=== PATIENT | male | born 1940 | race Caucasian/White ===

== ENCOUNTER → 2017-11-14 11:39 | Outpatient (CLI) | payer MEDICARE, OTHER, SELFPAY ==
[2017-11-14 12:43] LABS: Anion Gap 5 (5-15); BUN 24 mg/dL (7-18); BUN/Creat Ratio 21.4 RATIO (10-20); Calcium,Total 8.9 mg/dL (8.5-10.1); Chloride 103 mmol/L (98-107); Creatinine, Serum 1.12 mg/dL (0.70-1.30); EST Glomerular Filtration Rate 67 mL/min (>60); Est Glom Filt Rate - Afr Amer 81 mL/min (>60); Glucose 114 mg/dL (74-106); Potassium 3.9 mmol/L (3.5-5.1); Sodium Level 141 mmol/L (136-145)
== END ==
PROVIDERS: Family Provider Family Medicine; PCP Family Medicine; Visit Provider Urology
DX: N20.0 Calculus of kidney (principal)
CPT/HCPCS: 36415; 80048

== ENCOUNTER → 2018-03-01 09:31 | Outpatient (CLI) | payer MEDICARE, OTHER, SELFPAY ==
[2018-03-01 10:28] LABS: AST(SGOT) 27 U/L (15-37); Alanine Aminotransfer ALT/SGPT 32 U/L (16-61); Albumin, Serum 3.8 g/dL (3.2-5.0); Alkaline Phosphatase 69 U/L (45-117); Bilirubin, Direct 0.26 mg/dL (0.00-0.30); Cholesterol 154 mg/dL (200); Globulin 3.4 g/dL (2.2-4.2); High Density Lipoprotein 56 mg/dL; Protein, Total 7.2 g/dL (6.4-8.2); Triglycerides 196 mg/dL; Very Low Density Lipoprotein 39 mg/dL (5-40)
== END ==
PROVIDERS: Family Provider Family Medicine; PCP Family Medicine; Visit Provider Internal Medicine Cardiovascular Disease
DX: E78.5 Hyperlipidemia, unspecified (principal)
CPT/HCPCS: 36415; 80061; 80076

== ENCOUNTER → 2018-04-13 07:47 | Outpatient (CLI) | payer MEDICARE, OTHER, SELFPAY | PROVIDERS: Family Provider Family Medicine; PCP Family Medicine; Visit Provider Ophthalmology | DX: G45.3 Amaurosis fugax (principal) | CPT/HCPCS: 93880 ==

== ENCOUNTER 2018-04-20 19:38 | Observation (INO) | payer MEDICARE, OTHER, SELFPAY ==
[2018-04-20] VITALS (9 sets, daily range): BP systolic 157–199; BP diastolic 80–101; PULSE 52–59; RESP 13–27; TEMP 36.5; O2SAT 96–98; BMI 30.1
--- NOTE | 2018-04-20 20:31 | EKG12_ITS ---
Test Reason : DIZZINESS Blood Pressure : / mmHG Vent. Rate : 052 BPM Atrial Rate : 052 BPM P-R Int : 234 ms QRS Dur : 112 ms QT Int : 458 ms P-R-T Axes : 025 022 088 degrees QTc Int : 425 ms Sinus bradycardia with 1st degree A-V block Incomplete right bundle branch block Nonspecific ST and T wave abnormality Abnormal ECG Confirmed by CLEVELAND DANG, THOMAS ([id number]), makeup editor RENATA REBOLLEDO ([id number] on 04/23/2018 3:23:16 PM Referred By: MARSHALL Confirmed By:THOMAS GUTHRIE MD
--- NOTE | 2018-04-20 20:31 | CT_ITS ---
STUDY: CT BRAIN WITHOUT CONTRAST REASON FOR EXAM: Male, 77 years old. Dizziness, CVA. RADIATION DOSAGE (If Supplied By Facility): CTDIvol = ( 44.99 ) mGy, DLP = ( 779.24 ) mGycm TECHNIQUE: Transaxial CT imaging of the brain was performed without administration of intravenous contrast material. Individualized dose optimization techniques were used for this CT. COMPARISON: None. FINDINGS: Normal soft tissue structures. Normal calvarium. There is mild cerebral atrophy with widening of the extra-axial spaces and ventricular dilatation. There are areas of decreased attenuation within the white matter tracts of the supratentorial brain, consistent with microvascular disease changes. Normal basal ganglia and thalami. Normal brainstem. Normal cerebellum. There is no intracranial hemorrhage. There are no findings of an acute ischemic infarction. There is a chronic left temporoparietal infarct, MCA distribution. Normal visualized paranasal sinuses. CT/Brain/Head without Contrast IMPRESSION: 1. No acute process. 2. Chronic left MCA infarct. 3. Mild involutional changes. Electronically Signed: Melody Burroughs MD at 21:52 EDT Tel , Service support ,
--- NOTE | 2018-04-20 20:33 | ED.VISSUMM ---
- ER Visit Summary Date of Service: 04/20/18 Chief Complaint: Vertigo History of Present Illness: The patient is a 77 M presenting with sudden onset of vertigo. Symptoms started at 6:45 PM. He states he was walking and began to have a spinning sensation. He had unsteady gait and was falling into the wall. These symptoms lasted 15-20 minutes. He is now feeling improved. He has a history of previous stroke. He is on Plavix. Physical Examination: Vitals are stable. Patient is afebrile. Alert no acute distress. HEENT exam is unremarkable. Neck is supple. Lungs are clear and equal bilaterally. Heart is regular rate and rhythm. Abdomen is soft nontender nondistended. Extremities are unremarkable. Skin is warm and dry. No focal neurologic deficit. NIH 1 mild expressive aphasia Remainder of exam is unremarkable. Emergency Department Course and Treatment: Stroke team was not activated due to NIH less than 4. CBC, chemistries unremarkable other than potassium 3.3, glucose 118, BUN 25. INR is 1.0. Troponin is less than 0.015. EKG is sinus rate of 52. Chest x-ray shows no acute process. CT head shows chronic left MCA infarct, no acute process. Will discuss with the hospitalist for observation. Disposition: Observation Impression: Vertigo, TIA This note was generated with CallmyName dictation software. It may contain incorrect words, spelling, and punctuation that were not noted in review of the chart prior to signing ED Disposition - Plan for ED Patient: Chief Complaint: Dizziness Referrals: Ric Ramirez MD [Primary Care Provider] -
--- NOTE | 2018-04-20 20:43 | RAD_ITS ---
STUDY: X-RAY CHEST REASON FOR EXAM: Male, 77 years old. Dizziness. TECHNIQUE: Portable chest. COMPARISON: None. FINDINGS: Sternotomy wires and surgical clips are compatible with prior CABG. The lungs are clear and expanded. There is no demonstrated pleural abnormality. There is mild cardiac enlargement. Normal mediastinum and montse. Normal visualized pulmonary arteries. Normal visualized aortic arch and descending thoracic aorta. Normal visualized thoracic spine. Normal visualized ribs, clavicles, and shoulders. There is no demonstrated abnormality of the visualized soft tissue structures of the upper abdomen. RAD/Chest 1 View IMPRESSION: No acute process. Electronically Signed: Melody Burroughs MD at 21:18 EDT Tel , Service support ,
[2018-04-20 21:12] LABS: Absolute Lymphocyte Count 1.25 X10^3/ul (0.83-4.51); Absolute Neutrophil Count 4.5 X10^3/uL (2.0-7.7); Basophil# 0.01 X10^3/uL; Basophil% 0.1 % (0-1); Eosinophil# 0.11 X10^3/uL; Eosinophils% 1.6 % (0-5); Hematocrit 40.2 % (40-54); Hemoglobin 13.5 g/dl (13.0-16.5); Lymphocyte # 1.25 X10^3/ul (4.0); Lymphocyte % 18.5 % (19-41); Mean Corp Hgb Conc 33.6 g/gl (32-36); Mean Corpuscular Hgb 30.1 pg (27.0-32.0); Mean Corpuscular Volume 89.5 fL (80-94); Monocyte# 0.84 X10^3/uL; Monocyte% 12.4 % (0-10); Neutrophil # 4.54 X10^3/uL (2.7-7.7); Neutrophil % 67.3 % (47-70); POSITIVE COUNT NO; POSITIVE DIFFERENTIAL NO; POSITIVE MORPHOLOGY NO; Platelet Count 173 K/mm3 (150-450); RBC Distribution Width CV 13.5 % (11.6-14.6); RBC Distribution Width SD 43.9 fl (35.1-43.9); Red Blood Count 4.49 M/mm3 (4.6-6.2); White Blood Count 6.8 K/mm3 (4.4-11.0)
[2018-04-20 21:17] LABS: Partial Thromboplast Time 27.6 Seconds (24.1-36.2); Prothrombin Time (Protime)PT. 13.5 SECONDS (11.7-14.9)
[2018-04-20 21:33] LABS: Anion Gap 7 (5-15); BUN 25 mg/dL (7-18); BUN/Creat Ratio 20.7 RATIO (10-20); Calcium,Total 9.1 mg/dL (8.5-10.1); Chloride 103 mmol/L (98-107); Creatinine, Serum 1.21 mg/dL (0.70-1.30); EST Glomerular Filtration Rate 61 mL/min (>60); Est Glom Filt Rate - Afr Amer 74 mL/min (>60); Estimated Creatinine Clearance 51.11 ml/min; Glucose 118 mg/dL (74-106); Potassium 3.3 mmol/L (3.5-5.1); Sodium Level 140 mmol/L (136-145)
--- NOTE | 2018-04-20 22:05 | PCM.HP.STD ---
Problem List (1) Stroke-like symptoms Status: Acute (2) H/O coronary artery bypass surgery Status: Chronic Comment: CABG saphenous vein graft to Diag 1, saphenous vein graft to left CFX, free ABEL to PDA, GUERRERO graft to LAD 1995. 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 (3) HLD (hyperlipidemia) Status: Chronic Qualifiers: Hyperlipidemia type: pure hypercholesterolemia Qualified Code(s): E78.00 - Pure hypercholesterolemia, unspecified; E78.00 - Pure hypercholesterolemia, unspecified; E78.00 - Pure hypercholesterolemia, unspecified; E78.0 - Pure hypercholesterolemia (4) HTN (hypertension) Status: Chronic Qualifiers: Hypertension type: essential hypertension Qualified Code(s): I10 - Essential (primary) hypertension; I10 - Essential (primary) hypertension; I10 - Essential (primary) hypertension History of Present Illness Date of Admission: 04/20/18 Chief Complaint: Wobbly on feet x 15-20 minutes The patient is a 77 year old M with a 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 This lasted for about 15-20 minutes. It is okay on the day of admission. His reported that the patient's speech deficits as mentioned above been no change. Probable CVA Head CT did not show any acute changes Patient is on aspirin 324 mg every 3 days. Patient reports that his cardiology wanted patient aspirin to be taken as stated. Aspirin continued with next dose within 24 hours of admission. Home Plavix continued High intensity statin continued MRI/MRA of brain and neck ordered. A1c ordered; returned unremarkable. Lipids unremarkable with LDL of 62. Permissive hypertension in first 24 hours. Labetalol 10 mg every 10 minutes as needed for systolic blood pressure more than 220 or diastolic blood pressure more than 120. Neurology consult. BPH Finasteride continued History of CAD with CABG Aspirin, Plavix and Lipitor continued DVT prophylaxis Subcutaneous heparin. Please verify rest of home medication when visits patient. 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 Nocturia (Chronic) R35.1 HLD (hyperlipidemia) (Chronic) E78.5 HTN (hypertension) (Chronic) I10 Allergies No Known Allergies Allergy (Verified 04/20/18 19:42) Home Medications: Ambulatory Orders Medication Instructions Recorded Aspirin [Aspirin EC] 325 mg PO Q3D 05/19/17 nitroglycerin 0.4 mg sublingual 0.4 mg SUBLINGUAL Q5-15M PRN 08/15/17 tablet amlodipine 5 mg tablet 5 mg PO DAILY #90 tab 04/03/18 atorvastatin 80 mg tablet 80 mg PO QHS #90 tab 04/03/18 clopidogrel 75 mg tablet 75 mg PO DAILY #90 tab 04/03/18 dutasteride 0.5 mg capsule 0.5 mg PO DAILY 04/03/18 hydrochlorothiazide 25 mg tablet 25 mg PO DAILY #90 tab 04/03/18 lisinopril 40 mg tablet 40 mg PO DAILY #90 tab 04/03/18 metoprolol tartrate 25 mg tablet 25 mg PO BID #180 tab 04/03/18 Surgical History: Surgical History (Last Reviewed 04/21/18 @ 07:13 by Heath Frias MD) H/O coronary artery bypass surgery (Chronic) Z95.1 CABG saphenous vein graft to Diag 1, saphenous vein graft to left CFX, free ABEL to PDA, GUERRERO graft to LAD 1995. 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 Surgical History: coronary bypass surgery, herniorrhaphy Lives: Spouse/ Significant Other Smoking Status: Never smoker Alcohol: None Review of Systems Constitutional: Denies: Chills, Fever, Weight Change HEENT: Denies: Head Aches, Sinus Congestion, Sinus Drainage Cardiovascular: Denies: Chest Pain, Palpitations Respiratory: Denies: Cough, Shortness of breath at rest, Sputum production Gastrointestinal: Denies: Abdominal Pain, Nausea, Vomiting Genitourinary: Denies: Dysuria Musculoskeletal: Denies: Joint Pain, Joint Tenderness Skin: Denies: Rash, Wounds Neurological: Reports: Balance problems, Slurred speech - Chronic and unchange per patient's . Psychiatric: Denies: Anxiety, Depression, Homicidal Ideations, Suicidal Ideations Hematologic/ Lymphatic: Denies: Easy Bruising, Easy Bleeding VTE Information - Inpt Only VTE Present on Admission: No VTE Mechan Device Prophylaxis: None VTE Pharm Prophylaxis ordered?: Yes Patient Problems: Active and Suspected Problems (Last Reviewed 04/21/18 @ 02:57 by Heath Frias MD) Stroke-like symptoms (Acute) - Physical Exam General: Alert, Oriented x3, Cooperative HEENT: Atraumatic, PERRLA, EOMI, Normocephalic Neck: Supple, No JVD, Negative Carotid Bruits Lungs: Clear to auscultation Cardiovascular: Regular rate, No murmurs Abdomen: Bowel Sounds Present, Soft, Non Tender Extremities: No edema, Capillary Refill Less than 3 Seconds Skin: No rashes, No breakdown Musculoskeletal: No Tenderness to Palpation of Joints or Extremities Neurological: Motor Exam 5/5 strength throughout, - - Receptive and expressive aphasia. Psych/Mental Status: Normal Affect Vital Signs Temp Pulse Resp BP Pulse Ox 97.7 F L 57 L 14 164/80 H 98 04/20/18 19:40 04/20/18 21:30 04/20/18 21:30 04/20/18 21:30 04/20/18 21:34 Oxygen Delivery Method Room Air Weight: 95.254 kg Body Mass Index (BMI) 30.1 Laboratory Tests Past 24 Hrs 04/20/18 04/20/18 04/20/18 20:50 20:50 20:50 WBC 6.8 RBC 4.49 L Hgb 13.5 Hct 40.2 MCV 89.5 MCH 30.1 MCHC 33.6 RDW 13.5 RDW Differential 43.9 Plt Count 173 MPV 10.0 Immature Gran % (Auto) 0.100 Neut % (Auto) 67.3 Lymph % (Auto) 18.5 L Cochran % (Auto) 12.4 H Eos % (Auto) 1.6 Baso % (Auto) 0.1 Absolute Neuts (auto) 4.5 Absolute Lymphs (auto) 1.25 Total Counted Not Reportable PT 13.5 INR 1.0 APTT 27.6 Sodium 140 Potassium 3.3 L Chloride 103 Carbon Dioxide 30.0 Anion Gap 7 BUN 25 H Creatinine 1.21 Estim Creat Clear Calc 51.11 Est GFR (MDRD) Af Amer 74 Est GFR (MDRD) Non-Af 61 BUN/Creatinine Ratio 20.7 H Glucose 118 H Calcium 9.1 Troponin I < 0.015 Assessment/Plan All Active Problems (Last Reviewed 04/21/18 @ 02:57 by Heath Frias MD) Stroke-like symptoms (Acute) The patient is a 77 year old M with a 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 Because of his previous symptoms of CVA his was concerned so patient was brought in for further evaluation. Probable CVA Head CT did not show any acute changes Patient is on aspirin 324 mg every 3 days. Patient reports that his cardiology wanted patient aspirin to be taken as stated. Aspirin continued with next dose within 24 hours of admission. Home Plavix continued High intensity statin continued MRI/MRA of brain and neck ordered. A1c ordered; returned unremarkable. Lipids unremarkable with LDL of 62. Permissive hypertension in first 24 hours. Labetalol 10 mg every 10 minutes as needed for systolic blood pressure more than 220 or diastolic blood pressure more than 120. PT, OT and ST to work with patient. Neurology consult. Hypertension Blood pressure not within goal at the time of admission High blood pressure management pain stroke protocol as above.. BPH Finasteride continued History of CAD with CABG Aspirin, Plavix and Lipitor continued DVT prophylaxis Subcutaneous heparin. Please verify rest of home medication when visit patient. Code Visit OBSV E&M: [id number] Initial observation care L3
[2018-04-21] VITALS (9 sets, daily range): BP systolic 137–187; BP diastolic 69–84; PULSE 56–79; RESP 15–17; TEMP 36.6–37.1; O2SAT 96–97; BMI 29.5
--- NOTE | 2018-04-21 00:17 | MRI_ITS ---
STUDY: MRI BRAIN WITHOUT CONTRAST REASON FOR EXAM: Male, 77 years old. Dizziness and gait abnormality. TECHNIQUE: Standardized multiplanar fat and water weighted pulse sequences were obtained. COMPARISON: 14 November 2011 FINDINGS: There is moderate cerebral atrophy with widening of the extra-axial spaces and ventricular dilatation. There are multiple white matter hyperintensities, distributed throughout the deep white matter tracts of the cerebral hemispheres, consistent with moderate chronic white matter ischemic changes. Left parietal temporal encephalomalacia from previous infarct is present with associated atrophic loss and expected dilatation of the right posterior ventricle. Normal T2* images of the brain without demonstrated susceptibility artifact. There is no demonstrated hemosiderin stain. Normal bilateral basal ganglia. Normal thalami. There is no extra-axial fluid accumulation. Normal flow voids within the major intracranial circulation suggesting patency by spin echo criteria. Normal sella turcica, pituitary gland, infundibular stalk, optic chiasm and hypothalamus. Normal tectal plate and pineal gland. Normal midbrain, audrey and medulla. Normal cerebellum. Normal basal cisterns. Normal bilateral temporal bones. Normal bilateral internal auditory canals. No demonstrated orbital abnormality, within the constraints of a routine brain study. Normal visualized paranasal sinuses. Normal calvarium and skull base. Normal visualized soft tissue structures. Normal visualized upper cervical spine. MRI/Brain without Contrast IMPRESSION: Senescent changes above with encephalomalacia the left posterior parietal temporal lobe from previous infarct with no evidence of acute intracranial bleed or ischemia. Electronically Signed: Rufino Benedict DO at 11:20 EDT , Service support ,
--- NOTE | 2018-04-21 00:17 | MRI_ITS ---
STUDY: MRA OF THE HEAD WITHOUT CONTRAST REASON FOR EXAM: Male, 77 years old. Dizziness and gait abnormality TECHNIQUE: 3-D [id number] (TOF) imaging was performed with MIPs. The study was performed unenhanced. COMPARISON: None. FINDINGS: Normal bilateral petrous carotid arteries. There is atherosclerotic narrowing greater than 50% within the right supraclinoid ICA as seen on axial series 2 image 72 through 84. Within the supraclinoid segment as seen on series 2 image 77 is likely an atherosclerotic outpouching with small irregular aneurysm not excluded. There is atheromatous plaque formation of the left cavernous carotid artery, with a mild stenosis (less than 50%). There is hypoplastic development of the right A1 segment of the anterior cerebral arteries with an atretic but intact artery. Normal left A1 segments of the anterior cerebral artery. Normal intact anterior communicating artery (ACOM). Normal bilateral A2 segments of the anterior cerebral arteries. There is irregularity of the right M1 and M2 branches with minimal luminal narrowing, suggesting atherosclerotic plaque formation, without an occlusion. There is irregularity of the left M1 and M2 branches with minimal luminal narrowing, suggesting atherosclerotic plaque formation, without an occlusion. Normal right posterior communicating artery (PCOM). Normal left posterior communicating artery (PCOM). There is absence of the right V4 segment. Right-sided There is a small atretic basilar artery, suggesting a basilar insufficiency. The visualized bilateral superior cerebellar (SCA) arteries are normal. Normal bilateral P1, P2 and visualized P3 segments of the posterior cerebral arteries. There is no demonstrated aneurysm of the [place] of [place]. There is no major vessel occlusion or hemodynamically significant stenosis. Within the left parietal occipital region is a region of encephalomalacia causing ex vacuo dilatation of the posterior lateral ventricle. MRI/MRA Head ONLY without Contrast IMPRESSION: 1. Diffuse areas of atherosclerotic change with greater than 50% stenosis within the right supraclinoid segment with irregularity and atherosclerotic changes. The distal M1 segment is patent on the right. Atherosclerotic contrast outpouching versus small supraclinoid medial aneurysm not excluded (series 2 image 77). 2. Absent right V4 segment with an atretic vertebral artery with distal right vertebral artery occlusion not excluded. 3. Encephalomalacia of the left posterior parietal parenchyma with associated ex vacuo dilatation of the posterior lateral right ventricle. Electronically Signed: Rufino Benedict DO at 10:44 EDT , Service support ,
--- NOTE | 2018-04-21 00:17 | MRI_ITS ---
STUDY: MRA NECK WITH AND WITHOUT CONTRAST REASON FOR EXAM: Male, 77 years old. Dizziness and gait abnormality. TECHNIQUE: 3-D [id number] (TOF) imaging was performed in an 1.5 T MRI scanner. 10 ml of Gadavist was administered for the contrast enhanced images. COMPARISON: None. FINDINGS: RIGHT CAROTID ARTERIES: Normal right common carotid artery (CCA). Normal right common carotid bulb. Normal origin of the right internal carotid (ICA) artery without a hemodynamically significant stenosis. Normal visualized cervical portion of the right internal carotid artery. Normal origin of the right external carotid artery (ECA). LEFT CAROTID ARTERIES: Normal left common carotid artery (CCA). Normal left common carotid bulb. Normal origin of the left internal carotid (ICA) artery without a hemodynamically significant stenosis. Normal visualized cervical portion of the left internal carotid artery. Normal origin of the left external carotid artery (ECA). VERTEBRAL ARTERIES: There is a diminutive 2 minimal flow related enhancement within the right vertebral artery. MRI/MRA Neck WITH and W/O Contrast IMPRESSION: Diminutive and minimal flow related enhancement in the right vertebral artery consistent with high-grade stenosis versus occlusion with normal appearance of the left vertebral artery. Otherwise no evidence of significant stenosis or aneurysm. Electronically Signed: Rufino Benedict DO at 11:52 EDT , Service support ,
[2018-04-21 00:45] LABS: Hemoglobin A1c 5.5 % (4.2-6.3)
[2018-04-21 06:44] LABS: International Normalized Ratio 1.1; Prothrombin Time (Protime)PT. 13.8 SECONDS (11.7-14.9)
[2018-04-21 06:59] LABS: Anion Gap 9 (5-15); BUN 22 mg/dL (7-18); BUN/Creat Ratio 21.4 RATIO (10-20); Calcium,Total 8.7 mg/dL (8.5-10.1); Chloride 104 mmol/L (98-107); Cholesterol 145 mg/dL (200); Creatinine, Serum 1.03 mg/dL (0.70-1.30); EST Glomerular Filtration Rate 74 mL/min (>60); Est Glom Filt Rate - Afr Amer 89 mL/min (>60); Estimated Creatinine Clearance 60.05 ml/min; Glucose 85 mg/dL (74-106); High Density Lipoprotein 45 mg/dL; Potassium 3.6 mmol/L (3.5-5.1); Sodium Level 143 mmol/L (136-145); Triglycerides 188 mg/dL; Very Low Density Lipoprotein 38 mg/dL (5-40)
--- NOTE | 2018-04-21 07:43 | ECHOD_ITS ---
Reason For Study: Arrhythmia Procedure This was a 2D Doppler, Color Flow transthoracic echocardiogram. Exam performed in department. Left Ventricle Normal LV size. Mild concentric left ventricular hypertrophy. Left ventricular systolic function is normal. The estimated ejection fraction is 60 %. No regional wall motion abnormalities noted. Right Ventricle Normal RV size. Normal systolic function. Atria Normal left atrium. Normal right atrium. Mitral Valve Normal mitral valve. Tricuspid Valve Normal tricuspid valve. Mild tricuspid valve insufficiency. Pulmonary artery systolic pressure is 29 mmHg. Aortic Valve Normal aortic valve. Pulmonic Valve Normal pulmonic valve. Great Vessels Normal aortic root. The pulmonary artery is normal size. Normal inferior vena cava. Pericardium/Pleural No pericardial effusion. Medication Negative bubble study on previous echo. MMode/2D Measurements & Calculations LVIDd: 4.4 cm IVSd: 1.2 cm Ao root diam: 3.8 cm LVIDs: 2.9 cm LVPWd: 1.2 cm LA dimension: 3.8 cm RVDd: 3.9 cm FS: 35.1 % LAV(MOD-bp): 59.4 ml LAV(MOD-bp) Indexed: 28.2 ml/m2 LA A4 area: 18.7 cm2 RA A4 area: 17.5 cm2 LAV(MOD-sp2): 71.1 ml LAV(MOD-sp4): 50.3 ml Doppler Measurements & Calculations MV E max grover: 51.2 cm/sec Lat Peak E' Grover: 8.3 cm/sec Med Peak E' Grover: 4.6 cm/sec MV A max grover: 56.0 cm/sec E/E' lat: 6.2 E/E' med: 11.1 MV E/A: 0.91 Ao V2 max: 131.2 cm/sec LV V1 max: 112.9 cm/sec PA V2 max: 124.1 cm/sec Ao max P.9 mmHg LV V1 max P.1 mmHg TR max grover: 249.1 cm/sec TR max P.8 mmHg Interpretation Summary Normal LV size. Mild concentric left ventricular hypertrophy. Left ventricular systolic function is normal. The estimated ejection fraction is 60 %. Structurally normal valves. Compared to prior study, there is no significant change. Ordering Physician: Nano Aquino Referring Physician: Ric Ramirez Performed By: Sharmila Levi RDCS
--- NOTE | 2018-04-21 07:44 | PCM.PN.HOSP ---
Patient Problems: Active and Suspected Problems (Last Reviewed 04/21/18 @ 07:13 by Heath Frias MD) Stroke-like symptoms (Acute) Subjective: Patient with no acute events overnight per self and per nursing report. Patient has had resolution of gait debility and ataxia since presentation to the emergency room the day prior with no recurrent neurological symptoms. He did state that 2 weeks prior to current presentation he did have right eye vision transient blurring but this had also resolved quickly. Reviewed MRI results with patient including no evidence of acute MRI and reviewed chronic changes on MRA of head and neck with neurology recommendation for outpatient evaluation and agreed with transition to daily baby aspirin and continuation of Plavix, statin and blood pressure regimen. Patient denies fevers, chills, nausea, emesis, abdominal pain, chest pain or dyspnea. Objective: Physical Examination: General: awake, alert, oriented x 3 and cooperative, seated upright in the bedside chair in no apparent distress. Skin: normal color, turgor, no icterus, cyanosis. HEENT: AT/NC, EOMI, PERRLA, MMM, chronic expressive and receptive aphasia. Lungs: CTA bilaterally, moderate effort, mild decrease BL bases, no rales, ronchi or wheezing. Heart: Regular rate and rhythm; no gallop, rub audible. Abdomen: soft, NTTP, ND, normal BS. Extremities: no cyanosis, clubbing, or edema. Neurological: patient awake, alert, oriented x 3; cognitive function intact; pupils equally reactive to light and accomodation; cranial nerves II-XII grossly normal, moving all 4 extremities, ongoing chronic expressive and receptive aphasia, unchanged, feels patient is a currently at baseline, strength intact, negative Babinski. Psychiatric: affect appears normal, no acute evidence of depressive or anxiety feelings. Vitals/I&O's: Vital Signs Temp Pulse Resp BP Pulse Ox 98.0 F 56 L 15 173/84 H 97 04/21/18 05:00 04/21/18 07:28 04/21/18 05:00 04/21/18 05:00 04/21/18 05:00 Oxygen Delivery Method Room Air Weight: 205 lb 11.06 oz Body Mass Index (BMI) 29.5 Intake and Output for Last 24 Hours 04/19/18 04/20/18 04/21/18 23:59 23:59 23:59 Intake Total 240 / 240 Balance 240 / 240 Laboratory Results 04/21/18 01:00: Troponin I < 0.015 04/21/18 06:10: PT 13.8, INR 1.1 04/21/18 06:10: Sodium 143, Potassium 3.6, Chloride 104, Carbon Dioxide 30.0, Anion Gap 9, BUN 22 H, Creatinine 1.03, Estim Creat Clear Calc 60.05, Est GFR (MDRD) Af Amer 89, Est GFR (MDRD) Non-Af 74, BUN/Creatinine Ratio 21.4 H, Glucose 85, Calcium 8.7, Triglycerides 188, Cholesterol 145, LDL Cholesterol 62, VLDL Cholesterol 38, HDL Cholesterol 45 Current Medications Aspirin (Ecotrin) 81 mg PO DAILY@0800 LARRY Atorvastatin Calcium (Lipitor) 80 mg PO QHS LARRY Clopidogrel Bisulfate (Plavix) 75 mg PO DAILY LARRY Finasteride (Proscar) 5 mg PO DAILY LARRY Heparin Sodium (Porcine) (Heparin Na) 5,000 unit SC Q12 LARRY Sodium Chloride () 250 mls @ 15 mls/hr IV .[id number] PRN PRN Reason: SALINE FLUSH Labetalol HCl (Trandate) 10 mg IV Q10M PRN PRN Reason: MAINTAIN SBP GOALS Stop: 04/22/18 00:18 Magnesium Hydroxide (Milk Of Magnesia) 30 ml PO DAILY PRN PRN Reason: Constipation Ondansetron HCl (Zofran) 4 mg IV Q8H PRN PRN PRN Reason: NAUSEA Sodium Chloride () 5 - 30 ml IV UD PRN PRN Reason: SALINE FLUSH Zolpidem Tartrate (Ambien (Generic)) 5 mg PO QHS PRN PRN PRN Reason: INSOMNIA Medical Necessity - Tobacco Use Smoking Status: Never smoker Assessment/Plan All Active Problems (Last Reviewed 04/21/18 @ 07:13 by Heath Frias MD) Stroke-like symptoms (Acute) The patient is a 77 y/o M w/ PMHx: CAD s/p CABG, HTN, HLD, BPH, 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 (1) Ataxic Gait concerning for TIA/CVA w/ Prior CVA history w/ chronic expressive and receptive aphasia: In the ED work-up included CBC remarkable, BMP w/ potassium 3.3, glucose 111 otherwise unremarkable, trop normal x 1, CT Head w/ no acute process, chronic left MCA infarct, mild involutional changes, CXR w/ acute process. Admitted to PCU, MRI Brain w/ senescent changes with encephalomalacia of the left posterior parietal temporal lobe from prior infarct with no evidence of acute infarct, MRA Head with diffuse areas of atherosclerotic change with greater than 50% stenosis within the right supraclinoid segment with irregularity and atherosclerotic changes, distal M1 segment patent on the right, atherosclerotic contrast outpouching versus small supraclinoid medial aneurysm unable to be excluded, absent right V4 segment with atretic vertebral artery with distal right vertebral artery occlusion unable to be excluded, encephalomalacia of the left posterior parietal parenchyma with associated ex vacuo dilatation of the posterior lateral RV, MRA Neck with diminutive flow related enhancement in the right vertebral artery consistent with high-grade stenosis versus occlusion with normal appearance of the left vertebral artery, ECHO with normal LV size, mild concentric LVH, normal LV systolic function, EF 60%, structurally normal-appearing bowels, PT/OT/Speech/Nutrition evaluation per protocol with home discharge recommendations. Neurology consulted for evaluation and recommended continuation of daily baby aspirin, Plavix, statin therapy as well as blood pressure regimen with planned follow-up outpatient within 3-4 weeks with no acute needs or interventions at this time. Given resolution of symptoms as noted above recommendations patient was maintained on HTN regimen to achieve goal, changed q3 day 325 mg ASA to daily 81 mg, continued on plavix, statin w/ AM FLP marked appearing. Maintain on fall precautions. TSH normal, magnesium normal. (2) Hyperglycemia, Mild: Admission glucose 118, HgbA1c 5.5%. (3) Hypokalemia: Admission K+ 3.3, supplementation given, repeat level w/ K 3.6. (4) Hypertension: Given resolution of symptoms, suspected TIA MRI of the brain with no acute stroke evident, started HTN regimen including Norvasc, hydrochlorothiazide, lisinopril, metoprolol with parameters, PRN labetalol. (5) Hyperlipidemia: Continue home statin regimen. AM FLP obtained as noted. (6) CAD: s/p CABG hx, maintain on asa transitioned to daily 81 mg, plavix, statin, BB. (7) BPH: Continue home dutasteride regimen. (8) DVT Prophylaxis: SCDs, lovenox.
--- NOTE | 2018-04-21 07:53 | PN_ITS ---
Patient Problems: Active and Suspected Problems (Last Reviewed 04/21/18 @ 07:13 by Heath Frias MD) Stroke-like symptoms (Acute) Subjective: Patient with no acute events overnight per self and per nursing report. Patient has had resolution of gait debility and ataxia since presentation to the emergency room the day prior with no recurrent neurological symptoms. He did state that 2 weeks prior to current presentation he did have right eye vision transient blurring but this had also resolved quickly. Reviewed MRI results with patient including no evidence of acute MRI and reviewed chronic changes on MRA of head and neck with neurology recommendation for outpatient evaluation and agreed with transition to daily baby aspirin and continuation of Plavix, statin and blood pressure regimen. Patient denies fevers, chills, nausea, emesis, abdominal pain, chest pain or dyspnea. Objective: Physical Examination: General: awake, alert, oriented x 3 and cooperative, seated upright in the bedside chair in no apparent distress. Skin: normal color, turgor, no icterus, cyanosis. HEENT: AT/NC, EOMI, PERRLA, MMM, chronic expressive and receptive aphasia. Lungs: CTA bilaterally, moderate effort, mild decrease BL bases, no rales, ronchi or wheezing. Heart: Regular rate and rhythm; no gallop, rub audible. Abdomen: soft, NTTP, ND, normal BS. Extremities: no cyanosis, clubbing, or edema. Neurological: patient awake, alert, oriented x 3; cognitive function intact; pupils equally reactive to light and accomodation; cranial nerves II-XII grossly normal, moving all 4 extremities, ongoing chronic expressive and receptive aphasia, unchanged, feels patient is a currently at baseline, strength intact, negative Babinski. Psychiatric: affect appears normal, no acute evidence of depressive or anxiety feelings. Vitals/I&O's: Vital Signs Temp Pulse Resp BP Pulse Ox 98.0 F 56 L 15 173/84 H 97 04/21/18 05:00 04/21/18 07:28 04/21/18 05:00 04/21/18 05:00 04/21/18 05:00 Oxygen Delivery Method Room Air Weight: 205 lb 11.06 oz Body Mass Index (BMI) 29.5 Intake and Output for Last 24 Hours 04/19/18 04/20/18 04/21/18 23:59 23:59 23:59 Intake Total 240 / 240 Balance 240 / 240 Laboratory Results 04/21/18 01:00: Troponin I < 0.015 04/21/18 06:10: PT 13.8, INR 1.1 04/21/18 06:10: Sodium 143, Potassium 3.6, Chloride 104, Carbon Dioxide 30.0, Anion Gap 9, BUN 22 H, Creatinine 1.03, Estim Creat Clear Calc 60.05, Est GFR ( MDRD) Af Amer 89, Est GFR (MDRD) Non-Af 74, BUN/Creatinine Ratio 21.4 H, Glucose 85, Calcium 8.7, Triglycerides 188, Cholesterol 145, LDL Cholesterol 62 , VLDL Cholesterol 38, HDL Cholesterol 45 Current Medications Aspirin (Ecotrin) 81 mg PO DAILY@0800 LARRY Atorvastatin Calcium (Lipitor) 80 mg PO QHS LARRY Clopidogrel Bisulfate (Plavix) 75 mg PO DAILY LARRY Finasteride (Proscar) 5 mg PO DAILY LARRY Heparin Sodium (Porcine) (Heparin Na) 5,000 unit SC Q12 LARRY Sodium Chloride () 250 mls @ 15 mls/hr IV .[id number] PRN PRN Reason: SALINE FLUSH Labetalol HCl (Trandate) 10 mg IV Q10M PRN PRN Reason: MAINTAIN SBP GOALS Stop: 04/22/18 00:18 Magnesium Hydroxide (Milk Of Magnesia) 30 ml PO DAILY PRN PRN Reason: Constipation Ondansetron HCl (Zofran) 4 mg IV Q8H PRN PRN PRN Reason: NAUSEA Sodium Chloride () 5 - 30 ml IV UD PRN PRN Reason: SALINE FLUSH Zolpidem Tartrate (Ambien (Generic)) 5 mg PO QHS PRN PRN PRN Reason: INSOMNIA Medical Necessity - Tobacco Use Smoking Status: Never smoker Assessment/Plan All Active Problems (Last Reviewed 04/21/18 @ 07:13 by Heath Frias MD) Stroke-like symptoms (Acute) The patient is a 77 y/o M w/ PMHx: CAD s/p CABG, HTN, HLD, BPH, 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 (1) Ataxic Gait concerning for TIA/CVA w/ Prior CVA history w/ chronic expressive and receptive aphasia: In the ED work-up included CBC remarkable, BMP w/ potassium 3.3, glucose 111 otherwise unremarkable, trop normal x 1, CT Head w/ no acute process, chronic left MCA infarct, mild involutional changes, CXR w/ acute process. Admitted to PCU, MRI Brain w/ senescent changes with encephalomalacia of the left posterior parietal temporal lobe from prior infarct with no evidence of acute infarct, MRA Head with diffuse areas of atherosclerotic change with greater than 50% stenosis within the right supraclinoid segment with irregularity and atherosclerotic changes, distal M1 segment patent on the right, atherosclerotic contrast outpouching versus small supraclinoid medial aneurysm unable to be excluded, absent right V4 segment with atretic vertebral artery with distal right vertebral artery occlusion unable to be excluded, encephalomalacia of the left posterior parietal parenchyma with associated ex vacuo dilatation of the posterior lateral RV, MRA Neck with diminutive flow related enhancement in the right vertebral artery consistent with high-grade stenosis versus occlusion with normal appearance of the left vertebral artery, ECHO with normal LV size, mild concentric LVH, normal LV systolic function, EF 60%, structurally normal-appearing bowels, PT/OT /Speech/Nutrition evaluation per protocol with home discharge recommendations. Neurology consulted for evaluation and recommended continuation of daily baby aspirin, Plavix, statin therapy as well as blood pressure regimen with planned follow-up outpatient within 3-4 weeks with no acute needs or interventions at this time. Given resolution of symptoms as noted above recommendations patient was maintained on HTN regimen to achieve goal, changed q3 day 325 mg ASA to daily 81 mg, continued on plavix, statin w/ AM FLP marked appearing. Maintain on fall precautions. TSH normal, magnesium normal. (2) Hyperglycemia, Mild: Admission glucose 118, HgbA1c 5.5%. (3) Hypokalemia: Admission K+ 3.3, supplementation given, repeat level w/ K 3.6. (4) Hypertension: Given resolution of symptoms, suspected TIA MRI of the brain with no acute stroke evident, started HTN regimen including Norvasc, hydrochlorothiazide, lisinopril, metoprolol with parameters, PRN labetalol. (5) Hyperlipidemia: Continue home statin regimen. AM FLP obtained as noted. (6) CAD: s/p CABG hx, maintain on asa transitioned to daily 81 mg, plavix, statin, BB. (7) BPH: Continue home dutasteride regimen. (8) DVT Prophylaxis: SCDs, lovenox.
[2018-04-21 08:15] LABS: Magnesium 1.8 mg/dL (1.6-2.6); Thyroid Stim Hormone (TSH) 1.28 uIU/mL (0.358-3.74)
[2018-04-21] MEDS: Finasteride 5 MG Tablet PO (08:42)
[2018-04-21] MEDS: Clopidogrel Bisulfate 75 MG Tablet PO (08:42)
[2018-04-21] MEDS: Metoprolol Tartrate 25 MG Tablet PO (08:46)
[2018-04-21] MEDS: hydroCHLOROthiazide 25 MG Tablet PO (08:46)
[2018-04-21] MEDS: Aspirin E.C. 81 MG Tablet PO (08:46)
[2018-04-21] MEDS: Heparin Injection (Vial) 5,000 UNIT/ML VIAL 5000 UNIT SC (08:46)
[2018-04-21] MEDS: amLODIPine 5 MG Tablet PO (08:47)
[2018-04-21] MEDS: Lisinopril 40 MG Tablet PO (08:47)
--- NOTE | 2018-04-21 14:05 | CASEMGMT ---
SEE RN TERESO ASSESS LINK: D/C PLAN: HOME Intro role to RN TERESO. Pt sitting up in recliner chair in room talking w/ in room. Pt alert/oriented. Pt and both willing to participate in assessment and questions answered appropriately. Pt lives with who assists with meals, jar capper, and transportation. Pt ambulates independently and uses no DME and able to drive short distances. Pt and deny needs for any DME and deny need for HHC. CM to continue to follow for any discharge planning needs that may arise. Aniket HARRISN RN CM
--- NOTE | 2018-04-21 15:40 | DCINST_ITS ---
- Discharge Diagnoses Current Active Problems: Current Active and Chronic Problems (Last Reviewed 04/21/18 @ 07:13 by Heath Frias MD) (1) Ataxic Gait concerning for TIA w/ Prior CVA history w/ chronic expressive and receptive aphasia (2) Hyperglycemia, Mild, Likely stress, HgbA1c 5.5% (3) Hypokalemia (4) Hypertension (5) Hyperlipidemia (6) CAD s/p CABG hx (7) BPH You will use the following diet at home:: Cardiac Your food should be the consistency of: Regular Your liquids should be the consistency of: Regular/Thin Discharge Activity: Return to Normal Activity May resume sexual activity in: No Restrictions Weight Bearing Status: Weight bearing as tolerated Call your doctor if you observe: Fever of 101 or Higher, Numbness or Tingling, Inability to urinate, Inability to have a bowel movement, Shortness of breath, Dizziness, Fainting spells, Chest pain, Uncontrolled pain Instructions: What Is a TIA?, Discharge Instructions for Transient Ischemic Attack (TIA) Additional Instructions: Your regimen has been altered with recommendation for daily aspirin 81 mg in addition to your plavix per Neurology recommendation in addition to your continued statin and blood pressure regimen. Allergies/Adverse Reactions: Allergies No Known Allergies Allergy (Verified 04/20/18 19:42) Medications to take at Discharge nitroglycerin 0.4 mg sublingual tablet 0.4 mg SUBLINGUAL Q5-15M PRN 08/15/17 amlodipine 5 mg tablet 5 mg PO DAILY #90 tab 04/03/18 atorvastatin 80 mg tablet 80 mg PO QHS #90 tab 04/03/18 clopidogrel 75 mg tablet 75 mg PO DAILY #90 tab 04/03/18 dutasteride 0.5 mg capsule 0.5 mg PO DAILY 04/03/18 hydrochlorothiazide 25 mg tablet 25 mg PO DAILY #90 tab 04/03/18 lisinopril 40 mg tablet 40 mg PO DAILY #90 tab 04/03/18 metoprolol tartrate 25 mg tablet 25 mg PO BID #180 tab 04/03/18 Aspirin E.C. [Ecotrin] 81 mg PO DAILY@0800 #30 tab 04/21/18 The following prescriptions were given: Aspirin E.C. [Ecotrin] 81 mg PO DAILY@0800 #30 tab Primary Care Physician: Ric Ramirez MD [Primary Care Provider] - Please follow up with your Primary Care Physician in: Follow-up within 3-5 days to review admission. Test Results: Test results from this visit will be discussed in further detail at your follow- up appointment, if applicable. Please Follow Up With: Ailyn Roberson MD When: Follow-up within 3-4 weeks. Please Follow Up With: Ty Collins MD When: Please follow-up as previously arranged. Proposed Discharge Date: 04/21/18
--- NOTE | 2018-04-21 15:42 | PCM.CONS.GEN ---
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 Per patient's yesterday (04/20/18) evening around 6:45 PM patient felt he was wobbly while walking, had to lean and take support of the lucero, felt light headed, episode lasted for about 15 minutes before improving, had episode of visual blurriness few weeks ago, denies any dizziness, focal motor weakness, sensory loss, worsening speech disturbances, visual disturbances, DRAKE, denies any frequent falls, does not use cane or walker to ambulate, does drive occasionally, and is on ASA/Plavix at baseline for many years. 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 Cerebral embolism with cerebral infarction (Chronic) Cerebrovascular accident (stroke) (Chronic) Atherosclerotic heart disease of [place] coronary artery without angina pectoris (Chronic) CABG saphenous vein graft to Diag 1, saphenous vein graft to left CFX, free ABEL to PDA, GUERRERO graft to LAD 1995. 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 Cerebral embolism with cerebral infarction (Chronic) I63.40 Cerebrovascular accident (stroke) (Chronic) I63.9 Atherosclerotic heart disease of [place] coronary artery without angina pectoris (Chronic) I25.10 CABG saphenous vein graft to Diag 1, saphenous vein graft to left CFX, free ABEL to PDA, GUERRERO graft to LAD 1995. 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 Nocturia (Chronic) R35.1 HLD (hyperlipidemia) (Chronic) E78.5 HTN (hypertension) (Chronic) I10 Allergies No Known Allergies Allergy (Verified 04/20/18 19:42) Home Medications: Ambulatory Orders Medication Instructions Recorded nitroglycerin 0.4 mg sublingual 0.4 mg SUBLINGUAL Q5-15M PRN 08/15/17 tablet amlodipine 5 mg tablet 5 mg PO DAILY #90 tab 04/03/18 atorvastatin 80 mg tablet 80 mg PO QHS #90 tab 04/03/18 clopidogrel 75 mg tablet 75 mg PO DAILY #90 tab 04/03/18 dutasteride 0.5 mg capsule 0.5 mg PO DAILY 04/03/18 hydrochlorothiazide 25 mg tablet 25 mg PO DAILY #90 tab 04/03/18 lisinopril 40 mg tablet 40 mg PO DAILY #90 tab 04/03/18 metoprolol tartrate 25 mg tablet 25 mg PO BID #180 tab 04/03/18 Aspirin E.C. [Ecotrin] 81 mg PO DAILY@0800 #30 tab 04/21/18 Surgical History: Surgical History (Last Reviewed 04/21/18 @ 07:13 by Heath Frias MD) H/O coronary artery bypass surgery (Chronic) Z95.1 CABG saphenous vein graft to Diag 1, saphenous vein graft to left CFX, free ABEL to PDA, GUERRERO graft to LAD 1995. 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 Surgical History: coronary bypass surgery, herniorrhaphy Lives: Spouse/ Significant Other Smoking Status: Never smoker Alcohol: None Review of Systems Constitutional: Reports: - - complete ROS negative except as documented in HPI Patient Problems: Active and Suspected Problems (Last Reviewed 04/21/18 @ 07:13 by Heath Frias MD) Stroke-like symptoms (Acute) TIA (transient ischemic attack) (Acute) - Physical Exam General: Alert HEENT: Normocephalic Neck: Supple Lungs: Clear to auscultation Cardiovascular: Normal S1, Normal S2 Abdomen: Bowel Sounds Present Extremities: No cyanosis Skin: No rashes Musculoskeletal: No Tenderness to Palpation of Joints or Extremities Neurological: - - consious, alert, AoAx3, CN 2-12 grossly intact, mixed aphasia, (chronic), power 5/5 all 4 extermities, no sensory loss, no cerebellar signs, gait deferred, Reflexes + B/L B/S/T/K/A Psych/Mental Status: Normal Affect Vital Signs Temp Pulse Resp BP Pulse Ox 97.9 F 79 17 137/69 H 97 04/21/18 12:33 04/21/18 12:33 04/21/18 12:33 04/21/18 12:33 04/21/18 12:33 Oxygen Delivery Method Room Air Weight: 93.3 kg Body Mass Index (BMI) 29.5 Intake and Output for Last 24 Hours 04/19/18 04/20/18 04/21/18 23:59 23:59 23:59 Intake Total 600 / 600 Balance 600 / 600 Laboratory Tests Past 24 Hrs 04/21/18 04/21/18 04/21/18 01:00 06:10 06:10 PT 13.8 INR 1.1 Sodium 143 Potassium 3.6 Chloride 104 Carbon Dioxide 30.0 Anion Gap 9 BUN 22 H Creatinine 1.03 Estim Creat Clear Calc 60.05 Est GFR (MDRD) Af Amer 89 Est GFR (MDRD) Non-Af 74 BUN/Creatinine Ratio 21.4 H Glucose 85 Calcium 8.7 Magnesium Troponin I < 0.015 Triglycerides 188 Cholesterol 145 LDL Cholesterol 62 VLDL Cholesterol 38 HDL Cholesterol 45 TSH 04/21/18 06:10 PT INR Sodium Potassium Chloride Carbon Dioxide Anion Gap BUN Creatinine Estim Creat Clear Calc Est GFR (MDRD) Af Amer Est GFR (MDRD) Non-Af BUN/Creatinine Ratio Glucose Calcium Magnesium 1.8 Troponin I Triglycerides Cholesterol LDL Cholesterol VLDL Cholesterol HDL Cholesterol TSH 1.28 Assessment/Plan All Active Problems (Last Reviewed 04/21/18 @ 07:13 by Heath Frias MD) Stroke-like symptoms (Acute) TIA (transient ischemic attack) (Acute) The patient is a 77 year old CM with PMH HTN, HLD, 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 Per patient's yesterday (04/20/18) evening around 6:45 PM patient felt he was wobbly while walking, had to lean and take support of the lucero, felt light headed, episode lasted for about 15 minutes before improving, had episode of visual blurriness few weeks ago, denies any dizziness, focal motor weakness, sensory loss, worsening speech disturbances, visual disturbances, DRAKE, denies any frequent falls, does not use cane or walker to ambulate, does drive occasionally, and is on ASA/Plavix at baseline for many years. Impressions Possible TIA Plan -MRI brain- reported nothing acute, shows old left MCA stroke -MRA head/neck-right vert stenosis/occlusion, atherosclerotic > 50% stenosis of right supraclinoid ICA, Atherosclerotic contrast outpouching versus small supraclinoid medial aneurysm not excluded- per radiology report -On ASA/Plavix -On Lipitor 80 mg PO q hs -Recommend Neurosurgery consult for possible aneurysm -[id number]-8.5, LDL-62 -TTE-EF 60%, normal LA size -PT/OT -GI/DVT prophylaxis -Fall precautions -Further medical management per primary team -Goal BP < 130/80 mmHg -Stroke risk factors discussed and stroke education provided -Avoid dehydration/avoid hypotensioni -Neurology follow up as outpatient in 2-3 weeks -Please call with questions if any -Thank you for allowing us to participate in patient's care and management I spent 60 minutes taking history, doing physical examination, reviewing medical records, coordinating car and counseling the patient. Code Visit Inpatient E&M: 29103 Init Hosp L3
--- NOTE | 2018-04-21 15:46 | CON.PCM_ITS ---
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 Per patient's yesterday (04/20/18) evening around 6: 45 PM patient felt he was wobbly while walking, had to lean and take support of the lucero, felt light headed, episode lasted for about 15 minutes before improving, had episode of visual blurriness few weeks ago, denies any dizziness , focal motor weakness, sensory loss, worsening speech disturbances, visual disturbances, DRAKE, denies any frequent falls, does not use cane or walker to ambulate, does drive occasionally, and is on ASA/Plavix at baseline for many years. 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 Cerebral embolism with cerebral infarction (Chronic) Cerebrovascular accident (stroke) (Chronic) Atherosclerotic heart disease of [place] coronary artery without angina pectoris (Chronic) CABG saphenous vein graft to Diag 1, saphenous vein graft to left CFX, free ABEL to PDA, GUERRERO graft to LAD 1995. 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 Cerebral embolism with cerebral infarction (Chronic) I63.40 Cerebrovascular accident (stroke) (Chronic) I63.9 Atherosclerotic heart disease of [place] coronary artery without angina pectoris (Chronic) I25.10 CABG saphenous vein graft to Diag 1, saphenous vein graft to left CFX, free ABEL to PDA, GUERRERO graft to LAD 1995. 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 Nocturia (Chronic) R35.1 HLD (hyperlipidemia) (Chronic) E78.5 HTN (hypertension) (Chronic) I10 Allergies No Known Allergies Allergy (Verified 04/20/18 19:42) Home Medications: Ambulatory Orders Medication Instructions Recorded nitroglycerin 0.4 mg sublingual 0.4 mg SUBLINGUAL Q5-15M PRN 08/15/17 tablet amlodipine 5 mg tablet 5 mg PO DAILY #90 tab 04/03/18 atorvastatin 80 mg tablet 80 mg PO QHS #90 tab 04/03/18 clopidogrel 75 mg tablet 75 mg PO DAILY #90 tab 04/03/18 dutasteride 0.5 mg capsule 0.5 mg PO DAILY 04/03/18 hydrochlorothiazide 25 mg tablet 25 mg PO DAILY #90 tab 04/03/18 lisinopril 40 mg tablet 40 mg PO DAILY #90 tab 04/03/18 metoprolol tartrate 25 mg tablet 25 mg PO BID #180 tab 04/03/18 Aspirin E.C. [Ecotrin] 81 mg PO DAILY@0800 #30 tab 04/21/18 Surgical History: Surgical History (Last Reviewed 04/21/18 @ 07:13 by Heath Frias MD) H/O coronary artery bypass surgery (Chronic) Z95.1 CABG saphenous vein graft to Diag 1, saphenous vein graft to left CFX, free ABEL to PDA, GUERRERO graft to LAD 1995. 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 Surgical History: coronary bypass surgery, herniorrhaphy Lives: Spouse/ Significant Other Smoking Status: Never smoker Alcohol: None Review of Systems Constitutional: Reports: - - complete ROS negative except as documented in HPI Patient Problems: Active and Suspected Problems (Last Reviewed 04/21/18 @ 07:13 by Heath Frias MD) Stroke-like symptoms (Acute) TIA (transient ischemic attack) (Acute) - Physical Exam General: Alert HEENT: Normocephalic Neck: Supple Lungs: Clear to auscultation Cardiovascular: Normal S1, Normal S2 Abdomen: Bowel Sounds Present Extremities: No cyanosis Skin: No rashes Musculoskeletal: No Tenderness to Palpation of Joints or Extremities Neurological: - - consious, alert, AoAx3, CN 2-12 grossly intact, mixed aphasia , (chronic), power 5/5 all 4 extermities, no sensory loss, no cerebellar signs, gait deferred, Reflexes + B/L B/S/T/K/A Psych/Mental Status: Normal Affect Vital Signs Temp Pulse Resp BP Pulse Ox 97.9 F 79 17 137/69 H 97 04/21/18 12:33 04/21/18 12:33 04/21/18 12:33 04/21/18 12:33 04/21/18 12:33 Oxygen Delivery Method Room Air Weight: 93.3 kg Body Mass Index (BMI) 29.5 Intake and Output for Last 24 Hours 04/19/18 04/20/18 04/21/18 23:59 23:59 23:59 Intake Total 600 / 600 Balance 600 / 600 Laboratory Tests Past 24 Hrs 04/21/18 04/21/18 04/21/18 01:00 06:10 06:10 PT 13.8 INR 1.1 Sodium 143 Potassium 3.6 Chloride 104 Carbon Dioxide 30.0 Anion Gap 9 BUN 22 H Creatinine 1.03 Estim Creat Clear Calc 60.05 Est GFR (MDRD) Af Amer 89 Est GFR (MDRD) Non-Af 74 BUN/Creatinine Ratio 21.4 H Glucose 85 Calcium 8.7 Magnesium Troponin I < 0.015 Triglycerides 188 Cholesterol 145 LDL Cholesterol 62 VLDL Cholesterol 38 HDL Cholesterol 45 TSH 04/21/18 06:10 PT INR Sodium Potassium Chloride Carbon Dioxide Anion Gap BUN Creatinine Estim Creat Clear Calc Est GFR (MDRD) Af Amer Est GFR (MDRD) Non-Af BUN/Creatinine Ratio Glucose Calcium Magnesium 1.8 Troponin I Triglycerides Cholesterol LDL Cholesterol VLDL Cholesterol HDL Cholesterol TSH 1.28 Assessment/Plan All Active Problems (Last Reviewed 04/21/18 @ 07:13 by Heath Frias MD) Stroke-like symptoms (Acute) TIA (transient ischemic attack) (Acute) The patient is a 77 year old CM with PMH HTN, HLD, 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 Per patient's yesterday (04/20/18) evening around 6: 45 PM patient felt he was wobbly while walking, had to lean and take support of the lucero, felt light headed, episode lasted for about 15 minutes before improving, had episode of visual blurriness few weeks ago, denies any dizziness , focal motor weakness, sensory loss, worsening speech disturbances, visual disturbances, DRAKE, denies any frequent falls, does not use cane or walker to ambulate, does drive occasionally, and is on ASA/Plavix at baseline for many years. Impressions Possible TIA Plan -MRI brain- reported nothing acute, shows old left MCA stroke -MRA head/neck-right vert stenosis/occlusion, atherosclerotic > 50% stenosis of right supraclinoid ICA, Atherosclerotic contrast outpouching versus small supraclinoid medial aneurysm not excluded- per radiology report -On ASA/Plavix -On Lipitor 80 mg PO q hs -Recommend Neurosurgery consult for possible aneurysm -Nav3p-5.5, LDL-62 -TTE-EF 60%, normal LA size -PT/OT -GI/DVT prophylaxis -Fall precautions -Further medical management per primary team -Goal BP < 130/80 mmHg -Stroke risk factors discussed and stroke education provided -Avoid dehydration/avoid hypotensioni -Neurology follow up as outpatient in 2-3 weeks -Please call with questions if any -Thank you for allowing us to participate in patient's care and management I spent 60 minutes taking history, doing physical examination, reviewing medical records, coordinating car and counseling the patient. Code Visit Inpatient E&M: 56124 Init Hosp L3
--- NOTE | 2018-04-21 15:46 | PCM.DC.SUM ---
Discharge Date and Diagnosis - Problem List Patient Problems: Active and Suspected Problems (Last Reviewed 04/21/18 @ 07:13 by Heath Frias MD) Stroke-like symptoms (Acute) Date of Admission: 04/20/18 Date of Discharge: 04/21/18 - Primary Discharge Diagnosis Active and Suspected Problems (Last Reviewed 04/21/18 @ 07:13 by Heath Frias MD) Stroke-like symptoms (Acute) (1) Ataxic Gait concerning for TIA w/ Prior CVA history w/ chronic expressive and receptive aphasia (2) Hyperglycemia, Mild, HgbA1c 5.5%. 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 Cerebral embolism with cerebral infarction (Chronic) Cerebrovascular accident (stroke) (Chronic) Atherosclerotic heart disease of [place] coronary artery without angina pectoris (Chronic) CABG saphenous vein graft to Diag 1, saphenous vein graft to left CFX, free ABEL to PDA, GUERRERO graft to LAD 1995. 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 Nocturia (Chronic) HLD (hyperlipidemia) (Chronic) HTN (hypertension) (Chronic) Aortocoronary bypass status (Chronic) Coronary atherosclerosis (Chronic) CVA (cerebral vascular accident) (Chronic) HLD (hyperlipidemia) (Chronic) HTN (hypertension) (Chronic) Ureteral calculus, left (Chronic) Hydronephrosis, left (Chronic) Hospital Course and Treatment Imaging Results: 04/21/18 07:43 Echo Complete [ECHO] Routine Dr. Roberson Neurology Procedures: 2-D Echocardiogram, EKG Summary of Care Provided: The patient is a 77 y/o M w/ PMHx: CAD s/p CABG, HTN, HLD, BPH, Hx prior CVA w/ residual receptive and expressive aphasia who presented to the [facility] ED on 04/20/18 with history of worsened debility, ataxic lasting approximately 15-20 minutes at 6:45 pm, noted to have been falling into lucero w/ concurrent spinning sensation with improvement following. In the ED work-up included CBC remarkable, BMP w/ potassium 3.3, glucose 111 otherwise unremarkable, trop normal x 1, CT Head w/ no acute process, chronic left MCA infarct, mild involutional changes, CXR w/ acute process. Admitted to PCU, MRI Brain w/ senescent changes with encephalomalacia of the left posterior parietal temporal lobe from prior infarct with no evidence of acute infarct, MRA Head with diffuse areas of atherosclerotic change with greater than 50% stenosis within the right supraclinoid segment with irregularity and atherosclerotic changes, distal M1 segment patent on the right, atherosclerotic contrast outpouching versus small supraclinoid medial aneurysm unable to be excluded, absent right V4 segment with atretic vertebral artery with distal right vertebral artery occlusion unable to be excluded, encephalomalacia of the left posterior parietal parenchyma with associated ex vacuo dilatation of the posterior lateral RV, MRA Neck with diminutive flow related enhancement in the right vertebral artery consistent with high-grade stenosis versus occlusion with normal appearance of the left vertebral artery, ECHO with normal LV size, mild concentric LVH, normal LV systolic function, EF 60%, structurally normal-appearing bowels, PT/OT/Speech/Nutrition evaluation per protocol with home discharge recommendations. Neurology consulted for evaluation and recommended continuation of daily baby aspirin, Plavix, statin therapy as well as blood pressure regimen with planned follow-up outpatient within 3-4 weeks with no acute needs or interventions at this time. Given resolution of symptoms as noted above recommendations patient was maintained on HTN regimen to achieve goal, changed q3 day 325 mg ASA to daily 81 mg, continued on plavix, statin w/ AM FLP marked appearing. Maintain on fall precautions. TSH normal, magnesium normal. Admission glucose 118, HgbA1c 5.5%. She discharged to home in stable condition with recommended follow-up with neurology, PCP as well as his routine cardiology visit. did mention recent alterations to his hypertensive regimen and stated that he had coupled the metoprolol which is meant to be twice daily with both doses in the morning and recommended against this. Discharge Activity: Return to Normal Activity May resume sexual activity in: No Restrictions Weight Bearing Status: Weight bearing as tolerated Call your doctor if you observe: Fever of 101 or Higher, Numbness or Tingling, Inability to urinate, Inability to have a bowel movement, Shortness of breath, Dizziness, Fainting spells, Chest pain, Uncontrolled pain Home Medications: Medications to take at Discharge nitroglycerin 0.4 mg sublingual tablet 0.4 mg SUBLINGUAL Q5-15M PRN 08/15/17 amlodipine 5 mg tablet 5 mg PO DAILY #90 tab 04/03/18 atorvastatin 80 mg tablet 80 mg PO QHS #90 tab 04/03/18 clopidogrel 75 mg tablet 75 mg PO DAILY #90 tab 04/03/18 dutasteride 0.5 mg capsule 0.5 mg PO DAILY 04/03/18 hydrochlorothiazide 25 mg tablet 25 mg PO DAILY #90 tab 04/03/18 lisinopril 40 mg tablet 40 mg PO DAILY #90 tab 04/03/18 metoprolol tartrate 25 mg tablet 25 mg PO BID #180 tab 04/03/18 Aspirin E.C. [Ecotrin] 81 mg PO DAILY@0800 #30 tab 04/21/18 Following Prescrptions Were Given to Patient: Aspirin E.C. [Ecotrin] 81 mg PO DAILY@0800 #30 tab Primary Care Physician: Zackary Ramirez MD [Primary Care Provider] - Please follow up with your Primary Care Physician in: Follow-up within 3-5 days to review admission. Please Follow Up With: Ailyn Roberson MD When: Follow-up within 3-4 weeks. Please Follow Up With: Ty Collins MD When: Please follow-up as previously arranged. Please Follow Up With: ZACKARY RAMIREZ Patient Instructions: What Is a TIA?, Discharge Instructions for Transient Ischemic Attack (TIA) Disposition: Home Minutes spent on discharge:: 35 Patient Condition:: Fair Medical Necessity - Tobacco Use Smoking Status: Never smoker Meaningful Use Info Meaningful Use Diagnoses (Choose all that apply): None applicable Code Visit OBSV E&M: 53592 Initial observation care L3
== END 2018-04-21 15:39 | disposition home or self-care (01) ==
LOC: ED 20:41 → PCU 23:34
PROVIDERS: Admitting Provider Hospitalist; Emergency Provider Emergency Medicine; Family Provider Family Medicine; PCP Family Medicine; Visit Provider Family Medicine
DX: R26.0 Ataxic gait (principal); I10 Essential (primary) hypertension; I25.10 Atherosclerotic heart disease of native coronary artery without angina pectoris; N40.0 Benign prostatic hyperplasia without lower urinary tract symptoms; Z95.1 Presence of aortocoronary bypass graft; I69.320 Aphasia following cerebral infarction; Z79.899 Other long term (current) drug therapy; Z79.02 Long term (current) use of antithrombotics/antiplatelets; Z79.82 Long term (current) use of aspirin; E78.5 Hyperlipidemia, unspecified; R73.9 Hyperglycemia, unspecified; E87.6 Hypokalemia; I45.10 Unspecified right bundle-branch block; R00.1 Bradycardia, unspecified; I07.1 Rheumatic tricuspid insufficiency; R94.31 Abnormal electrocardiogram [ECG] [EKG]; R42 Dizziness and giddiness; G93.89 Other specified disorders of brain; I83.813 Varicose veins of bilateral lower extremities with pain; R29.701 NIHSS score 1
CPT/HCPCS: 36415; 70450; 70544; 70549; 70551; 71045; 80048; 80061; 83036; 83735; 84443; 84484; 85025; 85610; 85730; 93005; 93306; 96372; 97162; 97165; 99218; 99285; A9585; G0378

== ENCOUNTER 2018-12-14 08:10 | Emergency (ER) | payer MEDICARE, OTHER, SELFPAY ==
[2018-12-14 08:11] VITALS: BP 155/97; PULSE 90; RESP 16; TEMP 36.2; O2SAT 97; BMI 29.9
--- NOTE | 2018-12-14 08:24 | ED.DCSUM_ITS ---
- ER Visit Summary Date of Service: 12/14/18 Chief Complaint: Nosebleed History of Present Illness: The patient is a 78 M presents to the emergency department with intermittent nosebleed. Patient states for the past week, he had 3 separate nosebleeds. He states they have been short-lived and only lasted 15 to 30 minutes. He is been able to get his bleeding to stop. It happened again this morning. He is on Plavix. He states with the change in weather, he is have a lot of dry areas in his nose. He states he does get some seasonal allergies. He denies any trauma. He denies any fevers or chills. He denies any weakness or lightheadedness. Physical Examination: Exam is relatively unremarkable. The oropharynx is widely patent. There is no posterior bleeding. Patient does have some cracking t of the mucosal changes along the capsule back plexus in the left naris. There is no active bleeding. Rest of exam is unremarkable. Test Results: [] Emergency Department Course and Treatment: I was able to visualize where the patient was bleeding from. Silver nitrate was used. The patient was cauterized. He was observed. He had no further bleeding. Patient will be continued on Afrin. I did college and career counselor him that if his bleeding resumes to hold pressure. He is comfortable with this plan of care and will be given outpatient ENT follow-up as needed. Treatment Plan: [] Disposition: Discharge Impression: 1. Left epistaxis This note was generated with [employer] dictation software. It may contain incorrect words, spelling, and punctuation that were not noted in review of the chart prior to signing ED Disposition - Plan for ED Patient: Instructions: Nosebleed Referrals: Kermit Lu MD [STAFF PHYSICIAN] -
[2018-12-14] MEDS: Silver Nitrate (BKC) 1 EACH TOPICAL (08:36)
[2018-12-14 08:52] VITALS: BP 146/82; PULSE 71; RESP 16; O2SAT 97
== END 2018-12-14 08:52 | disposition home or self-care (01) ==
LOC: ED 08:43
PROVIDERS: Emergency Provider Emergency Medicine; Family Provider Family Medicine; PCP Family Medicine
DX: R04.0 Epistaxis (principal); I25.10 Atherosclerotic heart disease of native coronary artery without angina pectoris; I10 Essential (primary) hypertension; Z79.82 Long term (current) use of aspirin; Z79.01 Long term (current) use of anticoagulants; Z79.899 Other long term (current) drug therapy; Z86.73 Personal history of transient ischemic attack (TIA), and cerebral infarction without residual deficits
CPT/HCPCS: 30901; 99282

== ENCOUNTER → 2019-03-28 09:41 | Outpatient (CLI) | payer MEDICARE, OTHER, SELFPAY ==
[2019-03-28 10:50] LABS: AST(SGOT) 21 U/L (15-37); Alanine Aminotransfer ALT/SGPT 30 U/L (16-61); Albumin, Serum 3.9 g/dL (3.2-5.0); Alkaline Phosphatase 72 U/L (45-117); Bilirubin, Direct 0.21 mg/dL (0.00-0.30); Cholesterol 197 mg/dL (200); Globulin 3.4 g/dL (2.2-4.2); High Density Lipoprotein 49 mg/dL; Protein, Total 7.3 g/dL (6.4-8.2); Triglycerides 201 mg/dL; Very Low Density Lipoprotein 40 mg/dL (5-40)
== END ==
PROVIDERS: Family Provider Family Medicine; PCP Family Medicine; Referring Provider Internal Medicine Cardiovascular Disease; Visit Provider Internal Medicine Cardiovascular Disease
DX: E78.00 Pure hypercholesterolemia, unspecified (principal)
CPT/HCPCS: 36415; 80061; 80076

== ENCOUNTER → 2019-04-30 12:50 | Outpatient (CLI) | payer MEDICARE, OTHER, SELFPAY ==
[2019-04-04 11:14] VITALS: BMI 29.7
--- NOTE | 2019-04-30 12:52 | ECHOCS_ITS ---
Reason For Study: AFIB Procedure This was a 2D Doppler, Color Flow transthoracic echocardiogram. The study was technically difficult. Contrast injection was performed. Exam performed in department. Left Ventricle Normal LV size. Left ventricular systolic function is normal. The estimated ejection fraction is 55 %. Right Ventricle Normal RV size. Normal systolic function. Atria The left atrium is moderately enlarged. Normal right atrium. Mitral Valve Normal mitral valve. Tricuspid Valve Normal tricuspid valve. Mild tricuspid valve insufficiency. Pulmonary artery systolic pressure is 33 mmHg. Aortic Valve Trisinus/trileaflet aortic valve. Mild focal aortic valve calcification. Pulmonic Valve Normal pulmonic valve. Great Vessels Normal aortic root. The pulmonary artery is normal size. Normal inferior vena cava. Pericardium/Pleural No pericardial effusion. Medication 22 gauge I.V. with prn adaptor inserted into right arm. Diluted definity 3.0ml given slow IV push to enhance endocardial definition. MMode/2D Measurements & Calculations LVIDd: 4.9 cm IVSd: 1.1 cm Ao root diam: 3.8 cm LVIDs: 3.5 cm LVPWd: 1.3 cm RVDd: 4.4 cm FS: 28.1 % LAV(MOD-bp): 93.8 ml EDV(MOD-sp4): 90.2 ml EDV(MOD-sp2): 83.8 ml LAV(MOD-bp) Indexed: 44.5 ml/m2 ESV(MOD-sp4): 56.3 ml EF(MOD-sp2): 56.8 % LAV(MOD-sp2): 87.4 ml EF(MOD-sp4): 37.6 % LAV(MOD-sp4): 101.9 ml SV(MOD-sp4): 33.9 ml SV(MOD-sp2): 47.6 ml LA A4 area: 28.9 cm2 LA dimension(2D): 4.7 cm RA A4 area: 15.7 cm2 Doppler Measurements & Calculations Ao V2 max: 89.0 cm/sec LV V1 max: 65.0 cm/sec TR max william: 259.0 cm/sec Ao max P.2 mmHg LV V1 max P.7 mmHg TR max P.0 mmHg Interpretation Summary Normal LV size. Left ventricular systolic function is normal. The estimated ejection fraction is 55 %. The left atrium is moderately enlarged. Mild tricuspid valve insufficiency. Contrast injection was performed. Ordering Physician: Ty Collins Referring Physician: ZACKARY SOLARES Performed By: Lucero Bill, VIANEY, RVT
== END ==
PROVIDERS: Family Provider Family Medicine; PCP Family Medicine; Referring Provider Internal Medicine Cardiovascular Disease; Visit Provider Internal Medicine Cardiovascular Disease
DX: I48.91 Unspecified atrial fibrillation (principal); R94.31 Abnormal electrocardiogram [ECG] [EKG]; Z95.1 Presence of aortocoronary bypass graft
CPT/HCPCS: 93306; Q9957; A4216; C8929

== ENCOUNTER 2019-06-17 17:35 | Emergency (ER) | payer MEDICARE, OTHER, SELFPAY ==
[2019-04-04 11:14] VITALS: BMI 29.7
[2019-06-17 17:37] VITALS: BP 182/102; PULSE 93; RESP 16; TEMP 36.6; O2SAT 99; BMI 31.2
[2019-06-17 17:41] VITALS: BP 165/89
--- NOTE | 2019-06-17 18:04 | CT_ITS ---
STUDY: CT BRAIN WITHOUT CONTRAST REASON FOR EXAM: Male, 78 years old. Fall RADIATION DOSAGE (If Supplied By Facility): CTDIvol = ( 44.99 ) mGy, DLP = ( 846.73 ) mGycm TECHNIQUE: Transaxial CT imaging of the brain was performed without administration of intravenous contrast material. Individualized dose optimization techniques were used for this CT. COMPARISON: MRI 04/21/2018 FINDINGS: Normal soft tissue structures. Normal calvarium. Normal size ventricles and extra-axial spaces for the patient's age. There are areas of decreased attenuation within the white matter tracts of the supratentorial brain, consistent with microvascular disease changes. Age-related changes of the basal ganglia. Normal brainstem. Normal cerebellum. There is no intracranial hemorrhage. There are no findings of an acute ischemic infarction. Left temporal and parietal encephalomalacia. Normal visualized paranasal sinuses. CT/Brain/Head without Contrast IMPRESSION: No fracture or intracranial hemorrhage. Electronically Signed: Devante Cox MD at 18:26 EST Tel , Service support ,
--- NOTE | 2019-06-17 18:05 | ED.VISSUMM ---
- ER Visit Summary Date of Service: 06/17/19 Chief Complaint: Right medial chest wall swelling post fall History of Present Illness: The patient is a 78 M is a history of prior CVA, CAD with prior CABG, hypertension and kidney stones. Patient is on Eliquis. Was out cutting wood. He fell fell backwards. Is unsure if he hit his head. No LOC. Said he felt fine Working eventually went inside when his came home she noticed large swelling and bruising to his medial right chest and base of his anterior neck and chest wall. He did urge more to move his arm. She brought him into be evaluated. He denies any shortness of breath. No abdominal pain. No neck pain. Physical Examination: Older male. Vital signs are stable afebrile. No acute distress. HEENT exam unremarkable. Atraumatic. There is no obvious facial scalp trauma nontender. C-spine nontender. Trachea midline. Lungs clear to auscultation bilaterally. Heart regular rhythm no murmur rate about 70. Chest wall is right proximal clavicle area there is a moderate to large hematoma. Is mildly tender. No obvious deformity. Ribs otherwise are nontender. Abdomen soft nontender normal bowel sounds no peritoneal signs. Pelvic girdle intact. Extremities moves all 4. Equal symmetrical 5 out of 5 regulatory affairs director strength. Strong radial pulse in the right wrist. Normal sensation bilaterally. Lower extremities are unremarkable nontender. Back nontender. Neurologically is awake alert with no focal motor deficits. Test Results: CT of the brain due to fall possible head trauma on Eliquis shows encephalomalacia which is chronic. But no skull fracture or bleed. Read by the radiologist and reviewed by me. Chest x-ray AP and lateral 2 views shows shows no acute abnormality. Read both myself and the radiologist. There is no obvious clavicle fracture or disc location. No obvious rib injury. No pneumothorax. Emergency Department Course and Treatment: Patient fell on a blood thinner CT of his brain will be obtained. We will start with a chest x-ray for possible clavicle fracture. Repeat exam the patient is doing well at 2010 PM. Resting comfortably. We went over his CAT scan and chest x-ray. He and his are comfortable being discharged home. The swelling is somewhat improved on the right medial chest. He understands if this is not improving he may need repeat x-rays or even a CAT scan. But at this time there is no signs of fracture or dislocation. Treatment Plan: Ice to the area. Hold his Eliquis tonight. Follow-up if not improving. Disposition: Discharge Impression: Acute fall Right medial chest wall hematoma Anticoagulated on Eliquis This note was generated with [employer] dictation software. It may contain incorrect words, spelling, and punctuation that were not noted in review of the chart prior to signing ED Disposition - Plan for ED Patient: Referrals: Ric Ramirez MD [Primary Care Provider] -
--- NOTE | 2019-06-17 18:15 | RAD_ITS ---
STUDY: X-RAY CHEST REASON FOR EXAM: Male, 78 years old. Large hematoma of the neck, fall TECHNIQUE: Frontal and lateral views of the chest. COMPARISON: 04/20/2018 FINDINGS: Median sternotomy wires and CABG clips. The lungs are clear and expanded. There is no demonstrated pleural abnormality. Normal size heart. Normal mediastinum and montse. Normal visualized pulmonary arteries. Normal visualized aortic arch and descending thoracic aorta. Normal visualized thoracic spine. Normal visualized ribs, clavicles, and shoulders. Abdominal clips. RAD/Chest PA and Lateral IMPRESSION: No acute pulmonary findings. Electronically Signed: Devante Cox MD at 18:33 EST Tel , Service support ,
[2019-06-17 19:36] VITALS: PULSE 99; RESP 16; O2SAT 99
--- NOTE | 2019-06-17 20:28 | ED.DEP ---
ED Disposition - Plan for ED Patient: Disposition: Home or Assisted Living Instructions: Hematoma Referrals: Ric Ramirez MD [Primary Care Provider] - 3-5 Days Additional Instructions: Hold your Eliquis tonight. You may restart tomorrow. Ice to your right chest wall at least 5 times a day for 20 to 30 minutes each time to decrease swelling. Follow-up if not improving or continued pain at this time the x-rays and CAT scan were both unremarkable. Return to the ER if you are feeling worse.
[2019-06-17 20:36] VITALS: BP 146/92; PULSE 87; RESP 16; O2SAT 97
--- NOTE | 2019-06-17 20:36 | ED.RN ---
REVIEWED D/C INSTRUCTIONS, FOLLOW UP CARE, AND S/S THAT WOULD WARRANT A RETURN TO THE ED WITH PT AND PT'S . BOTH VERBALIZED AN UNDERSTANDING AND DENY FURTHER QUESTIONS FOR THIS RN. PT SKIN P/W/D, RESP EVEN AND UNLABORED, PT A&O X 3, NO DISTRESS NOTED. PT AMBULATED OUT OF ED, GAIT STEADY.
== END 2019-06-17 20:38 | disposition home or self-care (01) ==
PROVIDERS: Emergency Provider Emergency Medicine; Family Provider Family Medicine; PCP Family Medicine
DX: S20.211A Contusion of right front wall of thorax, initial encounter (principal); W19.XXXA Unspecified fall, initial encounter; Y93.89 Activity, other specified; I25.10 Atherosclerotic heart disease of native coronary artery without angina pectoris; I10 Essential (primary) hypertension; Z95.1 Presence of aortocoronary bypass graft; Z79.82 Long term (current) use of aspirin; Z79.01 Long term (current) use of anticoagulants; Z79.899 Other long term (current) drug therapy; Z86.73 Personal history of transient ischemic attack (TIA), and cerebral infarction without residual deficits
CPT/HCPCS: 70450; 71046; 99282

== ENCOUNTER → 2019-09-18 09:40 | Outpatient (CLI) | payer MEDICARE, OTHER, SELFPAY ==
[2019-07-16 07:26] VITALS: BMI 29.8
[2019-09-18 11:45] LABS: AST(SGOT) 28 U/L (15-37); Alanine Aminotransfer ALT/SGPT 42 U/L (16-61); Albumin, Serum 3.9 g/dL (3.2-5.0); Alkaline Phosphatase 86 U/L (45-117); Bilirubin, Direct 0.26 mg/dL (0.00-0.30); Cholesterol 147 mg/dL (200); Globulin 3.5 g/dL (2.2-4.2); High Density Lipoprotein 65 mg/dL; Protein, Total 7.4 g/dL (6.4-8.2); Triglycerides 134 mg/dL; Very Low Density Lipoprotein 27 mg/dL (5-40)
== END ==
PROVIDERS: PCP Family Medicine; Referring Provider Internal Medicine Cardiovascular Disease; Visit Provider Internal Medicine Cardiovascular Disease
DX: E78.00 Pure hypercholesterolemia, unspecified (principal)
CPT/HCPCS: 36415; 80061; 80076

== ENCOUNTER 2020-10-05 07:34 | Outpatient (RCR) | payer MEDICARE, SELFPAY | END 2020-10-05 23:59 | LOC: IMMUN 07:34 | PROVIDERS: PCP Family Medicine; Visit Provider Family Medicine | DX: Z23 Encounter for immunization (principal) | CPT/HCPCS: 0011A; 0012A ==

== ENCOUNTER → 2020-10-08 15:53 | Outpatient (CLI) | payer MEDICARE, SELFPAY ==
[2020-09-22 07:46] VITALS: BMI 32.0
[2020-10-08 17:27] LABS: BNP,B-Type NATRIURETIC PEPTIDE 113.2 pg/mL (0-100)
[2020-10-08 17:30] LABS: AST(SGOT) 27 U/L (15-37); Alanine Aminotransfer ALT/SGPT 30 U/L (16-61); Albumin, Serum 4.1 g/dL (3.2-5.0); Alkaline Phosphatase 108 U/L (45-117); Anion Gap 7 (5-15); BUN 28 mg/dL (7-18); Bilirubin, Direct 0.32 mg/dL (0.00-0.30); Calcium,Total 9.5 mg/dL (8.5-10.1); Chloride 101 mmol/L (98-107); Cholesterol 153 mg/dL (200); Creatinine, Serum 1.27 mg/dL (0.70-1.30); EST Glomerular Filtration Rate 58 mL/min (>60); Est Glom Filt Rate - Afr Amer 70 mL/min (>60); Globulin 3.7 g/dL (2.2-4.2); Glucose 93 mg/dL (74-106); High Density Lipoprotein 65 mg/dL; Potassium 3.5 mmol/L (3.5-5.1); Protein, Total 7.8 g/dL (6.4-8.2); Sodium Level 140 mmol/L (136-145); Triglycerides 147 mg/dL; Very Low Density Lipoprotein 29 mg/dL (5-40)
== END ==
LOC: LABSPEC 15:57 → LAB 15:58
PROVIDERS: PCP Family Medicine; Referring Provider Internal Medicine Cardiovascular Disease; Visit Provider Internal Medicine Cardiovascular Disease
DX: I25.10 Atherosclerotic heart disease of native coronary artery without angina pectoris (principal); E78.5 Hyperlipidemia, unspecified; R06.00 Dyspnea, unspecified; Z95.1 Presence of aortocoronary bypass graft
CPT/HCPCS: 36415; 80048; 80061; 80076; 83880

== ENCOUNTER → 2020-10-19 06:39 | Outpatient (CLI) | payer MEDICARE, SELFPAY ==
[2020-09-22 07:46] VITALS: BMI 32.0
--- NOTE | 2020-10-19 13:16 | STRESSREP ---
Stress Test Report Pharmacologic myocardial perfusion stress test. 80-year-old male with a history of coronary artery bypass surgery. Stress protocol: Resting EKG demonstrates atrial fibrillation with a rate of 103 bpm normal intervals are noted resting blood pressure is 154/94 mmHg. 0.4 mg of regadenoson was infused per usual protocol followed by rapid intravenous saline flush injection continuous EKG monitoring was performed. The maximum heart rate attained was 125 bpm which was 90% of max impacted heart rate the maximum workload was 1 metabolic equivalent. At rest there were no ST or T wave changes noted to suggest abnormal flow reserve at peak infusion nonspecific ST changes were noted. Occasional premature ventricular complex was noted. The final blood pressure was 1 and 34/80 6 mmHg. Myocardial perfusion protocol. 14.3 mCi of technetium 99m sestamibi was injected at rest. 0.4 mg of regadenoson was infused per usual protocol peak infusion 44.1 mCi of technetium 99m sestamibi was injected stress images were obtained stress and rest images were reconstructed and compared in the short axis vertical long horizontal long axis. Gated images were also obtained Perfusion SPECT analysis: Review of the stress images demonstrate near normal perfusion noted in all areas of the myocardium including the anterior wall. The resting images demonstrate a similar pattern. No obvious areas of reversibility are noted suggest ischemia. Gated SPECT analysis: The gated ejection fraction is 63%. Conclusion: Normal pharmacologic myocardial perfusion stress test. Atrial fibrillation. Preserved ejection fraction.
== END ==
PROVIDERS: PCP Family Medicine; Referring Provider Internal Medicine Cardiovascular Disease; Visit Provider Internal Medicine Cardiovascular Disease
DX: I25.10 Atherosclerotic heart disease of native coronary artery without angina pectoris (principal); Z95.1 Presence of aortocoronary bypass graft
CPT/HCPCS: 78452; 93017; A9500; A4216; J2785

== ENCOUNTER → 2020-10-30 14:19 | Outpatient (CLI) | payer MEDICARE, SELFPAY ==
[2020-10-29 13:42] VITALS: BMI 32.1
--- NOTE | 2020-10-30 14:23 | VDLE_ITS ---
Reason For Study: EDEMA RIGHT LEFT GSV is normal. CFV is compressible, spontaneous, phasic, CFV is compressible, spontaneous, phasic, competent, and demonstrates normal competent and demonstrates normal augmentation. augmentation. FV is compressible, spontaneous, phasic, competent and demonstrates normal augmentation. POP V is compressible, spontaneous, phasic, competent and demonstrates normal augmentation. T/P Trunk is compressible. PTV is compressible. RT PerV is compressible. Procedure Exam performed in department. A preliminary report was called and/or faxed to DR RAMIREZ. VL/Venous Duplex US, Unilateral Interpretation Summary There is no evidence of right lower extremity deep vein thrombosis. Right great saphenous vein appears patent and compressible segmentally. Patent and compressible left commo n femoral vein Ordering Physician: Ric Ramirez Referring Physician: Ric Ramirez Performed By: Lucero Bill, VIANEY, RVT
== END ==
PROVIDERS: PCP Family Medicine; Referring Provider Family Medicine; Visit Provider Family Medicine
DX: I83.91 Asymptomatic varicose veins of right lower extremity (principal); R60.0 Localized edema
CPT/HCPCS: 93971

== ENCOUNTER → 2020-11-18 12:57 | Outpatient (CLI) | payer MEDICARE, SELFPAY ==
[2020-10-29 13:42] VITALS: BMI 32.1
--- NOTE | 2020-11-18 13:29 | ST.MBS ---
Modified Barium Swallow - Patient Information Study Date: 11/18/20 Study Time: 13:00 Direct Billable Minutes: 120 Total Minutes procedure & reportin Diagnosis: dysphagia, unspecified (R13.10) Referring Physician: Fredy Mcmillan Reason for Referral: To determine presence of aspiration given increased coughing worse following meals/drinks. Medical History: Per physician report, patient is an 80/m who recently presented for pulmonary evaluation secondary to productive cough and shortness of breath on exertion. Patient reportedly has had progression in shortness of breath and cough over the last 6 to 12 months. 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 Exercise tolerance is estimated at approximately 100 yards, but has progressed to the point that he will appear short of breath and wheezing at rest. Patient's reports that patient has significant coughing after meals. Patient typically brings up mucus. There is no report of previous swallowing issues. Current Diet Ordered: regular textures/thin liquids Dentition: Natural Teeth Mental Status: WNL Respiratory Status: Oxygenating on Room Air - Study Findings Consistencies: Thin Liquid, [place] Thick Liquid, Honey Thick Liquid, Pudding, Cookie - Penetration-Aspiration Scale Penetration-Aspiration Scale: OBJECTIVE ASSESSMENT OF SWALLOW FUNCTION (QUANTITATIVE ? PER TRIAL): PENETRATION / ASPIRATION SCALE (GARCIA): 1 = does not enter airway 2 = enters airway/above vocal folds/ejected 3 = enters airway/above vocal folds/not ejected 4 = enters airway/contacts vocal folds/ejected 5 = enters airway/contacts vocal folds/not ejected 6 = enters airway/below vocal folds/ejected 7 = enters airway/below vocal folds/not ejected despite effort 8 = enters airway/below vocal folds/no effort - Penetration-Aspiration Scale Score Thin Liquid via teaspoon Result: 1= does not enter airway Thin Liquid via teaspoon Trial 2 Result: 1= does not enter airway Thin Liquid via small single sip from cup Result: 2= enter airway/above vocal folds/ejected Thin Liquid via large single sip from cup Result: 1= does not enter airway Thin Liquid via sequential sips from cup Result: 2= enter airway/above vocal folds/ejected [place] Thick Liquid via large single sip from cup Result: 1= does not enter airway Honey Thick Liquid via large single sip from cup Result: 1= does not enter airway Pudding via teaspoon Result: 1= does not enter airway Cookie Result: 1= does not enter airway Thin Liquid via single sip from straw Result: 1= does not enter airway Thin Liquid via sequential sips from straw Result: 1= does not enter airway - however strong coughing episode occured following sips of thin liquid via straw and therefore aspiration cannot definitively be ruled out as patient changed positioning immediately following sip when coughing initiated. - Oral Phase Labial Seal: No Labial Escape Tongue Control During Bolus Hold: Cohesive bolus between tongue to palatal seal Bolus Preparation/Mastication: Timely and efficient chewing and mashing Bolus Transport/Lingual Motion: Brisk tongue motion Oral Residue: Trace residue lining oral structures - Pharyngeal Phase Initiation of Pharyngeal Swallow: Bolus head at posterior angle of ramus at first hyoid excursion Soft Palate Elevation: No bolus between soft palate and pharyngeal wall Laryngeal Elevation: Partial superior movement thyroid cart/partial apprx aryt-epig petiole Anterior Hyoid Excursion: Partial anterior movement Epiglottic Movement: Complete inversion Laryngeal Vestibule Closure at Height of Swallow: Incomplete; narrow column of air/contrast in laryngeal vestibule Pharyngeal Stripping Wave: Present - complete Pharyngoesophageal Segment Opening: Complete distension and complete duration; no obstruction of flow Tongue Base Retraction: No contrast between tongue base and posterior pharyngeal wall Pharyngeal Residue: Complete pharyngeal clearance - Diagnosis/Impression Diagnosis: mild pharyngeal dysphagia (R13.13) Impression: Effective mastication of Meka Dowhitney shortbread cookie with one cohesive bolus. Adequate oral containment with sufficient lingual control prior to A-P bolus transfer of liquid trials. Adequate pharyngeal swallow onset timing. Decreased anterior hyoid excursion however adequate epiglottic inversion present. Patient tolerated all thin liquids with exception of final trial when taking sequential sips via straw. Pt demonstrated immediate strong coughing following initial sip and due to pt moving body positioning with coughing, aspiration, although not witnessed, cannot be definitively ruled out due to diminished visualization of pharyngeal structures. - Recommendations Diet: Regular Textures, Thin Liquids Compensatory Strategies: Small Bites, Small Sips, No Straws, Slow Rate - one sip at a time; avoid straws, Sitting upright Supervision: Distant Supervision Recommend Repeat Modified Barium Swallow: TBD Need for Skilled Speech Therapy Services: No Education Completed: 1. Described result of evaluation. - Status Active ST Patient: Active - Contact Information [facility]:: Nadya Mayes MA, CCC-RECREATION THERAPY TEACHER [address] [address] [email or web address]
== END ==
PROVIDERS: PCP Family Medicine; Referring Provider Internal Medicine Critical Care Medicine; Visit Provider Internal Medicine Critical Care Medicine
DX: R05 Cough (principal); I69.30 Unspecified sequelae of cerebral infarction
CPT/HCPCS: 74230; 92611

== ENCOUNTER → 2020-11-20 09:23 | Outpatient (CLI) | payer MEDICARE, SELFPAY ==
[2020-10-29 13:42] VITALS: BMI 32.1
--- NOTE | 2020-11-20 13:56 | PFTCOMP_ITS ---
COMPLETE PULMONARY FUNCTION TEST INTERPRETATION Brief HPI: Patient is an 80 year old male, currently under the care of myself, who presents to [facility] for complete pulmonary function tests secondary to diagnosis of cough. Respiratory therapist reports good effort and reproducible results. Interpretation: Forced expiration spirometry shows no large airways obstructive ventilatory defect with an FEV1 of 56% predicted. There is no significant bronchodilator response by strict ATS criteria. Spirograms are of good quality and plateau normally. The respiratory flow volume loop shows a normal pattern. Lung volumes by body plethysmography show a decreased total lung capacity at 4.08, 64% predicted. All other lung volumes are reduced symmetrically. Diffusion capacity by carbon monoxide is normal at 83% predicted. The airway resistance is elevated. No previous pulmonary function tests were available for review. Impression: Moderate restrictive ventilatory defect with preserved diffusion capacity in a pattern consistent with musculoskeletal restriction
== END ==
PROVIDERS: PCP Family Medicine; Referring Provider Internal Medicine Critical Care Medicine; Visit Provider Internal Medicine Critical Care Medicine
DX: R05 Cough (principal); R06.00 Dyspnea, unspecified
CPT/HCPCS: 94060; 94726; 94729

== ENCOUNTER → 2020-11-26 13:37 | Outpatient (CLI) | payer MEDICARE, SELFPAY ==
[2020-10-29 13:42] VITALS: BMI 32.1
[2020-11-26 13:45] VITALS: PULSE 104; PULSE 111; PULSE 71; PULSE 91; PULSE 92; PULSE 94; PULSE 95; PULSE 97; O2SAT 93; O2SAT 94; O2SAT 95; O2SAT 96; O2SAT 97; O2SAT 98
--- NOTE | 2020-11-27 13:29 | WT_ITS ---
PSN 6 Minute Walk Test - 6 Minute Walk Test 6 Minute Walk Test: 6 Minute Walk Test PSN:6-Minute Walk Test Start: 11/26/20 14:06 Freq: Status: Active Protocol: [id number] Document 11/26/20 13:45 [facility] (Rec: 11/26/20 14:10 [facility] [id number]) 6 Minute Walk Test Date Performed 11/26/20 Time Performed 13:45 Height 5 ft 10 in Weight: 225 lb Weight in Pounds 225.[address]: Dr Mcmillan Assistive device used: None Pre-test Oxygen Delivery Method Room Air Pulse Ox (%) 95 Pulse Rate (60-100 beats/min) 71 Dyspnea Rosa M Scale (0-10) 0 Exertion Rosa M Scale (6-20) 6 1st minute Oxygen Delivery Method Room Air Pulse Ox (%) 98 Pulse Rate (60-100 beats/min) 94 2nd minute Oxygen Delivery Method Room Air Pulse Ox (%) 93 Pulse Rate (60-100 beats/min) 91 3rd minute Oxygen Delivery Method Room Air Pulse Ox (%) 96 Pulse Rate (60-100 beats/min) 97 4th minute Oxygen Delivery Method Room Air Pulse Ox (%) 94 Pulse Rate (60-100 beats/min) 104 H 5th minute Oxygen Delivery Method Room Air Pulse Ox (%) 95 Pulse Rate (60-100 beats/min) 111 H 6th minute Oxygen Delivery Method Room Air Pulse Ox (%) 97 Pulse Rate (60-100 beats/min) 95 Dyspnea Rosa M Scale (0-10) 0.5 Exertion Rosa M Scale (6-20) 11 Post-test Oxygen Delivery Method Room Air Pulse Ox (%) 98 Pulse Rate (60-100 beats/min) 92 Full Laps Walked 10 Partial Lap, Number of Tiles Walked 6 Total Distance Walked (ft) 596 - Interpretation Interpretation: The patient ambulated 596 feet over the course of 6 minutes beginning on room air without assistive devices or breaks. Pretesting oxygen saturation was noted to be 95% on room air. With ambulation, the delmi oxygen saturation was 93%. Although there was evidence of impaired walk distance, there was no significant exertional oxygen desaturation. - Recommendations Recommendations: There is no indication for the use of supplemental oxygen at this time.
== END ==
PROVIDERS: PCP Family Medicine; Referring Provider Internal Medicine Critical Care Medicine; Visit Provider Internal Medicine Critical Care Medicine
DX: R05 Cough (principal)
CPT/HCPCS: 94618

== ENCOUNTER → 2020-12-02 15:22 | Outpatient (CLI) | payer MEDICARE, SELFPAY ==
[2020-10-29 13:42] VITALS: BMI 32.1
--- NOTE | 2020-12-02 15:25 | RAD_ITS ---
STUDY: X-RAY CHEST REASON FOR EXAM: Male, 80 years old. WHEEZING/ ASTHMA/CHF TECHNIQUE: PA and lateral views of the chest. COMPARISON: Comparison is made with prior study dated 06/17/2019. FINDINGS: Hyperinflation. Mild degree of increased markings at the lung bases suggestive of mild scarring. There is no demonstrated pleural abnormality. Sternal cerclage wires and vascular clips are present from a prior sternotomy and coronary artery bypass graft procedure (CABG). Normal mediastinum and montse. Normal visualized pulmonary arteries. There is atherosclerotic calcification of the aortic arch with tortuosity. Normal visualized thoracic spine. Normal visualized ribs, clavicles, and shoulders. There is no demonstrated abnormality of the visualized soft tissue structures of the upper abdomen. RAD/Chest PA and Lateral IMPRESSION: Stable examination. Electronically Signed: Elier Llanos MD at 15:45 EDT , Service support ,
== END ==
PROVIDERS: PCP Family Medicine; Referring Provider Family Medicine; Visit Provider Family Medicine
DX: R06.2 Wheezing (principal); R06.00 Dyspnea, unspecified
CPT/HCPCS: 71046

== ENCOUNTER → 2020-12-11 08:28 | Outpatient (CLI) | payer MEDICARE, SELFPAY ==
[2020-12-11 05:54] VITALS: BMI 32.2
[2020-12-11 08:47] LABS: Absolute Lymphocyte Count 1.03 X10^3/uL (0.83-4.51); Absolute Neutrophil Count 2.7 X10^3/uL (2.0-7.7); Basophil# 0.04 X10^3/uL; Basophil% 0.9 % (0-1); Eosinophil# 0.16 X10^3/uL; Eosinophils% 3.5 % (0-5); Hematocrit 41.1 % (40-54); Hemoglobin 12.8 g/dL (13.0-16.5); Lymphocyte # 1.03 X10^3/ul (0.83-4.51); Lymphocyte % 22.4 % (19-41); Mean Corp Hgb Conc 31.1 g/dL (32-36); Mean Corpuscular Hgb 29.1 pg (27.0-32.0); Mean Corpuscular Volume 93.4 fL (80-94); Mean Platelet Vol. 9.7 fl (6.2-12.0); Monocyte# 0.67 X10^3/uL; Monocyte% 14.6 % (0-10); NRBC Flagged by Analyzer 0 % (0-5); Neutrophil % 58.6 % (47-70); Platelet Count 212 K/mm3 (150-450); RBC Distribution Width CV 14.1 % (11.6-14.6); RBC Distribution Width SD 48.2 fl (35.1-43.9); White Blood Count 4.6 K/mm3 (4.4-11.0)
== END ==
PROVIDERS: PCP Family Medicine; Referring Provider Surgery; Visit Provider Surgery
DX: E78.5 Hyperlipidemia, unspecified (principal); M79.89 Other specified soft tissue disorders; R23.8 Other skin changes
CPT/HCPCS: 36415; 85025

== ENCOUNTER 2021-01-06 10:30 | Outpatient (RCR) | payer MEDICARE, SELFPAY ==
[2020-12-11 05:54] VITALS: BMI 32.2
--- NOTE | 2020-12-22 16:38 | HP.OTEVAL ---
Patient's Visit Information TIM DAWSON Jr. is a 80 year old M, referred to Occupational Therapy by Dr. Bruno Gray MD, with a diagnosis of LE edema. Date of Evaluation: 12/21/20 Occupational Therapist: Melanie Bernal, ELIJAHR/L, CHT - Subjective This 80 year old male was seen for OT eval dx of lymphedema. states she noticed swelling in LE for about 4 weeks- states right leg is red from the knee down- States pt went for nuclear stress test and his legs started swelling afterwards- right was just knee down and now right LE swelling is thigh high and left LE is swelling as well. states she did call his construction director but spoke to nurse and said that the test would not cause swelling. states she would like to know what she can do to assist pt in getting rid of the swelling. - ADLs Dressing: Pants, Socks, Shoes - Lymphedema (Circumferential Measure) Mid-foot: right 24.5cm left 24cm Ankle: right 30cm 32cm Lower calf: right 29cm left 33cm Largest calf: right 45 left 45.5 Below knee: right 42 left 43cm Above knee: right 52cm left 49 Mid-thigh: right 55cm left 53cm Lower Exremity Comments: pt did have laxsics - Lower Limb Functional Index Lower Extremity Functional Score: 23 - Goals Demonstrate a 20% reduction in edema by d/c: Yes Demonstrate adequate knowledge of self-bangaging by 1st week: Yes Demonstrate adequate knowledge skin care/prec by 2nd week: Yes Demonstrate adequate knowledge therapeutic exercises by d/c: Yes Select approp compression garment w/donning/care/wear by d/c: Yes Voice need to replace compression garment every 4-6mo by dc: Yes Goal:: ed. on compression alternatives to decrease stress on caregiver donning/doffing compression garments. - Rehabilitation General Assessment: pt demo with 4 week hx of LE swelling after cardiac testing with Nuclear stress test- pt demo with significant swelling and would benefit from skilled OT services 1-2x week for 4 weeks to decrease edema and ed. pt and family on mtg, and exercises to stimulate circulation. Today therapist ed. pt and pts on lymph stim exercises, self manual lymph drainage and use of compression wraps ( velcro or michelle) to decrease edema- and pt demo understanding and agree to POC Rehabilitation Potential: Questionable - Anticipated Interventions Education re Diagnosis, Education re Life-long lymphedema Management, Education re Self-Bandaging Techniques, Education re Skin Care and Precautions, Education re Self Massage Techniques, Education re Correct Donning Tech,Care&Wearing Sched Comp Garments, Caregiver Training, Home Program - Visit Plan Frequency: 1-2x /Week Duration: 4 Weeks TEXT: Thank you for the opportunity to evaluate your patient. For Medicare and Medicare HMO plans, please review the plan of care and approve it. It will need to be FAXED BACK to us at [phone] for Medicare purposes. Please let me know if there are questions or concerns regarding this plan of care. Physician Signature: Date:
--- NOTE | 2021-01-07 15:33 | HP.OT.NRP ---
GEOVANNY DAWSON Jr. was seen in my office for initial evaluation on 12/21/20. The following Plan of Care was established for this patient: Initial Frequency: 1-2x /Week Initial Duration: 4 Weeks Plan: to order compression alternatives Anticipated Interventions: Education re Diagnosis, Education re Life-long lymphedema Management, Education re Self-Bandaging Techniques, Education re Skin Care and Precautions, Education re Self Massage Techniques, Education re Correct Donning Tech,Care&Wearing Sched Comp Garments, Caregiver Training, Home Program This patient was last seen in our office 01/06/21. Pertinent comments regarding their Occupational therapy will appear below: pt was seen for 2 visits- called today and stated she was going to cancel Geovanny's apts as he does seem like he wants to continue with therapy. Pt D/c per request At this point I will be discontinuing this patient from occupational therapy. I would be happy to see this patient again in the future if found appropriate by the physician. Thank you! Melanie Bernal, OTR/L, CHT
== END 2021-01-06 19:00 | disposition home or self-care (01) ==
LOC: OT 10:30
PROVIDERS: PCP Family Medicine; Referring Provider Surgery; Visit Provider Surgery
DX: I89.0 Lymphedema, not elsewhere classified (principal); M79.89 Other specified soft tissue disorders; R23.8 Other skin changes
CPT/HCPCS: 97166; 97530

== ENCOUNTER → 2021-01-14 14:47 | Outpatient (CLI) | payer MEDICARE, SELFPAY ==
[2021-01-14 14:02] VITALS: BMI 31.8
[2021-01-14 15:54] LABS: Absolute Lymphocyte Count 1.33 X10^3/uL (0.83-4.51); Absolute Neutrophil Count 2.9 X10^3/uL (2.0-7.7); Basophil# 0.03 X10^3/uL; Basophil% 0.6 % (0-1); Eosinophil# 0.15 X10^3/uL; Hemoglobin 13.4 g/dL (13.0-16.5); Lymphocyte # 1.33 X10^3/ul (0.83-4.51); Lymphocyte % 26.2 % (19-41); Mean Corp Hgb Conc 31.2 g/dL (32-36); Mean Corpuscular Hgb 28.2 pg (27.0-32.0); Mean Corpuscular Volume 90.3 fL (80-94); Mean Platelet Vol. 10.5 fl (6.2-12.0); Monocyte# 0.68 X10^3/uL; Monocyte% 13.4 % (0-10); NRBC Flagged by Analyzer 0 % (0-5); Neutrophil # 2.88 X10^3/uL (2.7-7.7); Neutrophil % 56.6 % (47-70); Platelet Count 186 K/mm3 (150-450); RBC Distribution Width CV 13.9 % (11.6-14.6); RBC Distribution Width SD 46.3 fl (35.1-43.9); Red Blood Count 4.76 M/mm3 (4.6-6.2); White Blood Count 5.1 K/mm3 (4.4-11.0)
[2021-01-14 16:38] LABS: Anion Gap 4 (5-15); BUN 22 mg/dL (7-18); Chloride 104 mmol/L (98-107); EST Glomerular Filtration Rate 68 mL/min (>60); Est Glom Filt Rate - Afr Amer 82 mL/min (>60); Glucose 77 mg/dL (74-106); Potassium 3.7 mmol/L (3.5-5.1); Sodium Level 142 mmol/L (136-145)
[2021-01-14 16:39] LABS: BNP,B-Type NATRIURETIC PEPTIDE 155.2 pg/mL (0-100)
== END ==
PROVIDERS: PCP Family Medicine; Referring Provider Nurse Practitioner Family; Visit Provider Nurse Practitioner Family
DX: I25.10 Atherosclerotic heart disease of native coronary artery without angina pectoris (principal); Z95.1 Presence of aortocoronary bypass graft; E78.5 Hyperlipidemia, unspecified; I10 Essential (primary) hypertension; I48.11 Longstanding persistent atrial fibrillation; R06.00 Dyspnea, unspecified
CPT/HCPCS: 36415; 80048; 83880; 85025

== ENCOUNTER → 2021-01-27 10:50 | Outpatient (CLI) | payer MEDICARE, SELFPAY ==
[2021-01-14 14:02] VITALS: BMI 31.8
--- NOTE | 2021-01-27 10:54 | ECHOCS_ITS ---
Reason For Study: ASHD Procedure This was a 2D Doppler, Color Flow transthoracic echocardiogram. The study was technically difficult. Contrast injection was performed. Exam performed in department. Left Ventricle Normal LV size. Mild concentric left ventricular hypertrophy. Left ventricular systolic function is normal. The estimated ejection fraction is 60 %. No regional wall motion abnormalities noted. Right Ventricle Normal RV size. Normal systolic function. Atria The left atrium is moderately enlarged. Normal right atrium. Mitral Valve Normal mitral valve. Tricuspid Valve Normal tricuspid valve. Mild (1+) tricuspid valve insufficiency. Pulmonary artery systolic pressure is 60 mmHg. Aortic Valve Trisinus/trileaflet aortic valve. Mild diffuse aortic valve thickening. Mild (1+) aortic valve insufficiency. Great Vessels Normal aortic root. The pulmonary artery is normal size. Normal inferior vena cava. Pericardium/Pleural No pericardial effusion. Medication 22 gauge I.V. with prn adaptor inserted into right arm. Diluted definity 3.0ml given slow IV push to enhance endocardial definition. MMode/2D Measurements & Calculations LVIDd: 5.5 cm IVSd: 1.3 cm Ao root diam: 3.6 cm LVIDs: 4.1 cm LVPWd: 1.3 cm RVDd: 3.7 cm FS: 26.2 % LAV(MOD-bp): 113.3 ml LA A4 area: 28.4 cm2 LA dimension(2D): 4.8 cm LAV(MOD-bp) Indexed: 51.9 ml/m2 LAV(MOD-sp2): 109.6 ml LAV(MOD-sp4): 104.5 ml RA A4 area: 18.1 cm2 Doppler Measurements & Calculations MV E max william: 101.9 cm/sec Ao V2 max: 94.3 cm/sec LV V1 max: 68.0 cm/sec Ao max P.6 mmHg LV V1 max P.9 mmHg PA V2 max: 86.0 cm/sec TR max william: 257.5 cm/sec TR max P.5 mmHg ECHO/Echo Complete W/ Contrast Interpretation Summary Normal LV size. Mild concentric left ventricular hypertrophy. Left ventricular systolic function is normal. The estimated ejection fraction is 60 %. Contrast injection was performed. Ordering Physician: Arik Jeffers Referring Physician: Ric Ramirez Performed By: Loraine Florentino, VIANEY, RVT
== END ==
PROVIDERS: PCP Family Medicine; Referring Provider Nurse Practitioner Family; Visit Provider Nurse Practitioner Family
DX: I25.10 Atherosclerotic heart disease of native coronary artery without angina pectoris (principal); R06.00 Dyspnea, unspecified; R06.02 Shortness of breath
CPT/HCPCS: 93306; Q9957; A4216; C8929; J3490

== ENCOUNTER → 2022-01-15 | Outpatient (CLI) | payer OTHER, SELFPAY ==
[2022-01-15 10:07] LABS: AST(SGOT) 25 U/L (15-37); Alanine Aminotransfer ALT/SGPT 32 U/L (16-61); Albumin, Serum 4.1 g/dL (3.2-5.0); Alkaline Phosphatase 93 U/L (45-117); Bilirubin, Direct 0.35 mg/dL (0.00-0.30); Cholesterol 152 mg/dL (200); Globulin 3.5 g/dL (2.2-4.2); High Density Lipoprotein 57 mg/dL; Protein, Total 7.6 g/dL (6.4-8.2); Triglycerides 119 mg/dL; Very Low Density Lipoprotein 24 mg/dL (5-40)
== END | disposition home or self-care (01) ==
LOC: LAB 09:31
PROVIDERS: PCP Family Medicine; Visit Provider Internal Medicine Cardiovascular Disease
DX: E78.00 Pure hypercholesterolemia, unspecified (principal)
CPT/HCPCS: 36415; 80061; 80076

== ENCOUNTER → 2022-07-14 | Outpatient (CLI) | payer OTHER, SELFPAY ==
[2022-07-14 12:54] LABS: Absolute Lymphocyte Count 1.37 X10^3/uL (0.83-4.51); Absolute Neutrophil Count 3.5 X10^3/uL (2.0-7.7); Basophil# 0.03 X10^3/uL; Basophil% 0.5 % (0-1); Eosinophil# 0.14 X10^3/uL; Eosinophils% 2.5 % (0-5); Hematocrit 45.4 % (40-54); Hemoglobin 15.1 g/dL (13.0-16.5); Lymphocyte # 1.37 X10^3/ul (0.83-4.51); Lymphocyte % 24.2 % (19-41); Mean Corp Hgb Conc 33.3 g/dL (32-36); Mean Corpuscular Hgb 30.6 pg (27.0-32.0); Mean Corpuscular Volume 92.1 fL (80-94); Mean Platelet Vol. 9.8 fl (6.2-12.0); Monocyte# 0.56 X10^3/uL; Monocyte% 9.9 % (0-10); NRBC Flagged by Analyzer 0 % (0-5); Neutrophil # 3.54 X10^3/uL (2.7-7.7); Neutrophil % 62.7 % (47-70); Platelet Count 191 K/mm3 (150-450); RBC Distribution Width CV 13.2 % (11.6-14.6); RBC Distribution Width SD 44.5 fl (35.1-43.9); Red Blood Count 4.93 M/mm3 (4.6-6.2); White Blood Count 5.7 K/mm3 (4.4-11.0)
[2022-07-14 13:22] LABS: AST(SGOT) 26 U/L (15-37); Alanine Aminotransfer ALT/SGPT 34 U/L (16-61); Alkaline Phosphatase 90 U/L (45-117); Bilirubin, Direct 0.35 mg/dL (0.00-0.30); Cholesterol 151 mg/dL (200); Globulin 3.4 g/dL (2.2-4.2); High Density Lipoprotein 64 mg/dL; Protein, Total 7.4 g/dL (6.4-8.2); Triglycerides 130 mg/dL; Very Low Density Lipoprotein 26 mg/dL (5-40)
[2022-07-14 13:25] LABS: Anion Gap 4 (5-15); BUN 19 mg/dL (7-18); BUN/Creat Ratio 18.8 RATIO (10-20); Calcium,Total 9.3 mg/dL (8.5-10.1); Chloride 102 mmol/L (98-107); Creatinine, Serum 1.01 mg/dL (0.70-1.30); EST Glomerular Filtration Rate 75 mL/min (>60); Est Glom Filt Rate - Afr Amer 91 mL/min (>60); Glucose 98 mg/dL (74-106); Potassium 3.9 mmol/L (3.5-5.1); Sodium Level 141 mmol/L (136-145); Thyroid Stim Hormone (TSH) 1.47 uIU/mL (0.358-3.74)
== END | disposition home or self-care (01) ==
LOC: LAB 12:28
PROVIDERS: Internal Medicine Cardiovascular Disease; PCP Family Medicine; Referring Provider Nurse Practitioner Family; Visit Provider Nurse Practitioner Family
DX: R53.83 Other fatigue (principal); E78.5 Hyperlipidemia, unspecified; Z79.899 Other long term (current) drug therapy
CPT/HCPCS: 36415; 80048; 80061; 80076; 84443; 85025

== ENCOUNTER → 2023-01-30 | Outpatient (CLI) | payer OTHER, SELFPAY ==
[2023-01-30 13:12] LABS: AST(SGOT) 24 U/L (15-37); Alanine Aminotransfer ALT/SGPT 26 U/L (16-61); Albumin, Serum 3.8 g/dL (3.2-5.0); Alkaline Phosphatase 101 U/L (45-117); Bilirubin, Direct 0.42 mg/dL (0.00-0.30); Cholesterol 138 mg/dL (200); Globulin 3.8 g/dL (2.2-4.2); High Density Lipoprotein 56 mg/dL; Protein, Total 7.6 g/dL (6.4-8.2); Triglycerides 112 mg/dL; Very Low Density Lipoprotein 22 mg/dL (5-40)
== END | disposition home or self-care (01) ==
PROVIDERS: Referring Provider Nurse Practitioner Family; Visit Provider Nurse Practitioner Family
DX: E78.00 Pure hypercholesterolemia, unspecified (principal)
CPT/HCPCS: 80061; 80076

== ENCOUNTER → 2023-03-27 | Outpatient (CLI) | payer MEDICARE, OTHER, SELFPAY ==
--- NOTE | 2023-03-27 14:29 | CT_ITS ---
We are attempting to reach an attending provider to discuss findings. An addendum with communication details will be sent when the communication is complete. INDICATION: GROSS HEMATURIA EXAMINATION: CT ABDOMEN AND PELVIS WITHOUT CONTRAST - CT Abdomen And Pelvis W/O Contrast Injection TECHNIQUE: Helically acquired images were obtained of the abdomen and pelvis without oral or IV contrast. A radiation dose optimization technique was used for this scan. IV Contrast dosage and agent: None. Oral contrast: None. COMPARISON: CT abdomen/pelvis from 05/19/2017. FINDINGS: Lower thorax: Mild cardiomegaly. Scattered subsegmental atelectasis. Liver: Unremarkable unenhanced appearance. Gallbladder: Cholelithiasis without CT findings of acute cholecystitis. No significant bile duct dilation. Spleen: Unremarkable unenhanced appearance. Pancreas: No abnormal duct dilation. No peripancreatic inflammatory stranding. Adrenal glands: Unremarkable. Kidneys: There is an 8 mm obstructing calculus within the left proximal ureter causing mild upstream left hydroureteronephrosis (602:108). 8 mm calculus was also seen in the left proximal ureter in 2017. Additional nonobstructing 4 mm left lower pole and punctate left upper pole calculi. Punctate nonobstructing right lower pole calculus. There is a new indeterminate slightly hyperdense 1.9 cm right upper pole cortical lesion (4:30. 601:77). 1.4 cm right lower pole simple cyst. A few additional subcentimeter cortical hypodensities are too small to characterize but favored to relate to simple cyst. No right-sided hydronephrosis. Bladder: Underdistended but no acute findings are suspected. GI tract: Sigmoid diverticulosis without findings of acute diverticulitis. No significant bowel dilation. Small hiatal hernia. Normal appendix. No pericolonic inflammatory stranding. Peritoneum/mesentery/retroperitoneum: No free air or free fluid. No masses or lymphadenopathy. Pelvis: Grossly stable prostatomegaly measuring up to 6.2 cm in transverse dimension and causing mass effect on the posterior aspect of the bladder. Partially visualized small bilateral hydroceles. No free air or free fluid. No lymphadenopathy. Vasculature: Moderate arterial atherosclerotic disease. No abdominal aortic or iliac aneurysm. Bones/soft tissues: No acute fracture or subluxation. Stable and intact appearance of partially visualized right proximal femur surgical fixation corbin and gamma nail. No destructive osseous lesions. Soft tissues are unremarkable. CT/Abdomen/Pelvis without Cont IMPRESSION: 1. 8 mm obstructing calculus within the left proximal ureter causing mild upstream left-sided hydroureteronephrosis. It is unclear if this is a new calculus, given that there was also an 8 mm calculus present within the left proximal ureter 2016. 2. Additional bilateral nonobstructing nephrolithiasis. 3. Indeterminate new 1.9 cm right upper kidney cortical lesion. Further assessment with ultrasound or MRI is recommended to exclude solid mass. 4. Cholelithiasis without CT findings of acute cholecystitis. 5. Sigmoid diverticulosis without findings of acute diverticulitis. 6. Stable prostatomegaly. 7. Partially visualized small bilateral hydroceles. 8. Mild cardiomegaly. Request for NSC communication placed in the connect system and will be documented in the connect system after findings are discussed with provider. Electronically Signed: Thomas Palacio DO at 9:16 EDT ,
== END | disposition home or self-care (01) ==
LOC: CT 14:27
PROVIDERS: Referring Provider Urology; Visit Provider Urology
DX: R31.0 Gross hematuria (principal)
CPT/HCPCS: 74176

== ENCOUNTER 2023-05-05 14:32 | Observation (INO) | payer MEDICARE, SELFPAY ==
[2023-05-05] VITALS (10 sets, daily range): BP systolic 125–157; BP diastolic 71–94; PULSE 69–107; RESP 16–18; TEMP 36.1–36.6; O2SAT 92–98; BMI 29.5
--- NOTE | 2023-05-05 08:55 | RAD_ITS ---
STUDY: X-RAY - ABDOMEN/PELVIS REASON FOR EXAM: Male, 82 years old. Preoperative evaluation for left kidney stone. TECHNIQUE: Single AP view of the abdomen / pelvis on 2 images. COMPARISON: None. FINDINGS: Normal visualized lung bases. Normal bowel gas pattern with air seen to the rectosigmoid. No definite calcifications. The visualized liver, spleen and kidneys are grossly normal in size and morphology. Osteopenia with ORIF of right proximal femur. Moderate lower thoracic and lumbosacral spondylosis. Mild arthrosis of both hips. RAD/Abdomen Single View IMPRESSION: No abnormal calcifications identified. Electronically Signed: Geovanny Sullivan MD at 9:16 EDT ,
[2023-05-05] MEDS: Lactated Ringers 1,000 ML 15 ML IV (09:31)
--- NOTE | 2023-05-05 10:12 | HP.PCM_ITS ---
History and Physical Date of Admission: 05/05/23 82 yo male who has been having Gross hematuria but no pain, no back pain went to urgent care and found to have blood he is urinating okay comes in for a cysto ALLERGIES: None MEDICATIONS: Hydrochlorothiazide 25 mg tablet 1 tablet PO Daily Amlodipine Besylate 5 mg tablet 1 tablet PO Daily Aspirin 81 mg tablet,chewable 1 tablet PO Daily Atorvastatin Calcium 80 mg tablet 1 tablet PO Daily Eliquis 2.5 mg tablet 1 tablet PO BID Furosimide Lisinopril 40 mg tablet 1 tablet PO Daily Metoprolol Succinate 25 mg tablet, extended release 24 hr 1 tablet PO BID Notes: PT denies having pneumo vaccine taking ASA 325 every THIRD day Immunizations: None VITAL SIGNS: 04/04/2023 02:15 PM Weight 200 lb / 90.72 kg Height 69 in / 175.26 cm BP 134/86 mmHg BMI 29.5 kg/m? - BMI Counseling was provided. PHYSICAL EXAM: Constitutional: Well-nourished. No physical deformities. Normally developed. Good grooming. Neck: Neck symmetrical, not swollen. Normal tracheal position. Respiratory: No labored breathing, no use of accessory muscles. Cardiovascular: Normal temperature, normal extremity pulses, no swelling, no varicosities. Lymphatic: No enlargement of neck, axillae, groin. Skin: No paleness, no jaundice, no cyanosis. No lesion, no ulcer, no rash. Neurologic / Psychiatric: Oriented to time, oriented to place, oriented to person. No depression, no anxiety, no agitation. Gastrointestinal: No mass, no tenderness, no rigidity, non obese abdomen. Anus and Perineum: No hemorrhoids. No anal stenosis. No rectal fissure, no anal fissure. No edema, no dimple, no perineal tenderness, no anal tenderness. Eyes: Normal conjunctivae. Normal eyelids. Ears, Nose, Mouth, and Throat: Left ear no scars, no lesions, no masses. Right ear no scars, no lesions, no masses. Nose no scars, no lesions, no masses. Normal hearing. Normal lips. Scrotum: No lesions. No edema. No cysts. No warts. Epididymides: Right: no spermatocele, no masses, no cysts, no tenderness, no induration, no enlargement. Left: no spermatocele, no masses, no cysts, no tenderness, no induration, no enlargement. Musculoskeletal: Normal gait and station of head and neck. Testes: 5+ cm hydrocele left testis. 5+ cm hydrocele right testis. No tenderness, no swelling, no enlargement left testis. No tenderness, no swelling, no enlargement right testis. Normal location left testis. Normal location right testis. No mass, no cyst, no varicocele left testis. No mass, no cyst, no varic ocele right testis. Urethral Meatus: Normal size. No lesion, no wart, no discharge, no polyp. Normal location. Penis: Circumcised, no warts, no cracks. No dorsal Peyronie's plaques, no left corporal Peyronie's plaques, no right corporal Peyronie's plaques, no scarring, no warts. No balanitis, no meatal stenosis. Prostate: Prostate about 40 grams. Left lobe normal consistency, right lobe normal consistency. Symmetrical lobes. No prostate nodule. Left lobe no tenderness, right lobe no tenderness. smooth no hard nodules Seminal Vesicles: Nonpalpable. Sphincter Tone: Normal sphincter. No rectal tenderness. No rectal mass. Complexity of Data: Source Of History: Patient Records Review: Previous Patient Records Urine Test Review: Urinalysis PROCEDURES: Flexible Cystoscopy - 80765 Risks, benefits, and some of the potential complications of the procedure were discussed at length with the patient including infection, bleeding, voiding discomfort, urinary retention, fever, chills, sepsis, and others. All questions were answered. Informed consent was obtained. Antibiotic prophylaxis was given. Sterile technique and intraurethral analgesia were used. Meatus: Normal size. Normal location. Normal condition. Urethra: No strictures. External Sphincter: Normal. Verumontanum: Normal. Prostate: Non-obstructing. Mild hyperplasia. Bladder Neck: Non-obstructing. Ureteral Orifices: Normal location. Normal size. Normal shape. Effluxed clear urine. Bladder: No trabeculation. Normal mucosa. No stones. Given antibiotic 1 dose per protocol Urinalysis - 28961 Dipstick Dipstick Cont'd Specimen: Voided Blood: about 250 Appearance: Clear pH: 5.0 Color: Yellow Protein: Trace Glucose: Normal Urobilinogen: Neg Bilirubin: Neg Nitrites: Neg Ketones: Neg Leukocyte Esterase: Neg ASSESSMENT: ICD-10 Details 1 Benign prostatic hyperplasia with lower urinary tract symptoms - N40.1 Acute, Systemic Symptoms 2 Gross hematuria - R31.0 Acute, Systemic Symptoms 3 Calculus of kidney - N20.0 Acute, Systemic Symptoms PLAN: Document Letter(s): Created for Patient: Clinical Summary Notes: cysto clear CT scan shows stone in the proximal left ureter plan for cysto left ureteroscopy laser stone and stent. hold eliquis 3 days
--- NOTE | 2023-05-05 10:29 | DCINST_ITS ---
Discharge Instructions Diet Discharge Diet: No restrictions Activity Discharge Activity: Return to Normal Activity and May Not Drive (while taking narcotic pain medications.) Dressing / Incision Call your doctor if you observe: Fever of 101 or Higher Follow Up Care Please Follow Up With: Hood Fletcher MD When: Call [phone] for an appointment Test Results: Test results from this visit will be discussed in further detail at your follow- up appointment, if applicable. Discharge Plan Admission Attending Provider: Hood Fletcher Primary Care Provider: Care Physician,Beatris Primary Discharge Orders/Prescriptions Prescriptions: No Action nitroglycerin 0.4 mg tablet, sublingual 0.4 mg SUBLINGUAL Q5-15M PRN (Reason: chest pain ) aspirin 81 mg tablet,delayed release (DR/EC) 81 mg PO DAILY amlodipine 5 mg tablet 5 mg PO DAILY Qty: 90 3RF Eliquis 2.5 mg tablet 2.5 mg PO BID Qty: 180 3RF atorvastatin 80 mg tablet 80 mg PO QHS Qty: 90 3RF furosemide 40 mg tablet 40 mg PO DAILY Qty: 90 3RF lisinopril 40 mg tablet 40 mg PO DAILY Qty: 90 3RF metoprolol tartrate 25 mg tablet 25 mg PO BID Qty: 180 3RF Referrals / Follow Up: Care Physician,Beatris Primary [Primary Care Provider] - Disposition Disposition (needs filled in before D/C Order can be placed): Home, Self Care
[2023-05-05] MEDS: Cefazolin 2 GM in 0.9% Normal Saline (100mL Bag) 100 ML IV (10:33)
--- NOTE | 2023-05-05 11:57 | OP.PCM_ITS ---
Report of Operation Date of Procedure: 05/05/23 Pre-Operative Diagnosis: Large stone in the distal left ureter impacted Post-Operative Diagnosis: Same Surgery/Procedure Performed:: Cystoscopy, balloon dilation of the left ureter, left ureteroscopy laser lithotripsy of stone, left retrograde pyelogram, left stent placement Description of Surgical Findings:: Patient was taken back to the operating room at the smooth induction of general anesthesia he was placed in dorsolithotomy position. His Eliquis had been held for the procedure. He did have a very large bilateral hydroceles. We elected not to address these problems today. The penis and testicles were prepped and draped in usual sterile fashion went into the bladder with a 21 Dominican rigid cystourethroscope and a very high riding bladder neck very large prostate very difficult to get into the bladder because the scope was pressing against his hydroceles it made extremely difficult to get into the bladder once in DepoCyt the bladder identified the right ureteral orifice with the left orifice was extremely inflamed very difficult to see where it was and it heavily trabeculated bladder making visualization of the orifice extremely difficult I did switch over to the 70 degree lens and using all bronze bridge and then multiple attempts were done to get into the ureter on the left side after almost giving up then I was finally able to get the wire on the left side and put the wire up the ureter. We then advanced a 15 Dominican balloon dilator and balloon dilated the distal ureter could see the stone in the distal ureter after the ureter and orifice were balloon dilated then I left the wire in place I used a dual-lumen catheter and exchanged the wires for a Super Stiff wire and a flexible wire then over the flexible wire I went in with the flexible ureteroscope I was able to get into the ureter went up the kidney inspected the upper pole midpole and lower pole the kidney no other fragments were seen in the kidney worked my way down the ureter and then there was extremely large stone in the distal ureter that was impacted very hard large stone first time I try to engage the stone I popped out of the distal ureter with the flexible scope I then had to use a dual-lumen catheter again go over the working wire placed another safety wire in the left working wire in place I tried to go in with a semirigid ureteroscope but the angle was too difficult I could not get in with a semirigid rigid ureteroscope because of the angle of the bladder also pressing on the hydrocele and the angle into the ureter was impossible to get in with a semirigid so then I went back in with a flexible ureteroscope over the working wire and then very gently coming back to the stone I finally got to where the stone was in the distal ureter so that the flexible scope was still in the ureter and then I used a 270 ?m laser fiber I could barely see the stone but if I pulled back any further I knew was going to pop out of the ureter so I started lasering the stone very carefully with the crack up the energy up to 1.5 J and 6 Hz as a laser the stone took a long time to eventually break up the stone little pieces but then started migrating up the ureter making it easier to treat and then finally had lasered the stone completely but there was a lot of scar tissue in the distal ureter from the stone was impacted and a lot of scar tissue right in the distal ureter where the stone was stuck in the ureter lasered all the small pieces I went all the way back up to the kidney inspected no major fragments are in the kidney work my way back down the ureter I then found multiple multiple small little fragments either lasered the ones that were freed up and then there was 1 stone still stuck in the ureter this was freed up and lasered to there is no stone stuck in the parenchyma of the ureter. Then finally I came out of the ureter and the stone to be lasered successfully little pieces should pass I then backloaded the scope over the safety wire and then placed a stent on the stent on the left side but with all limited manipulation it was necessary to get to the stone fairly sure this patient will not be able to urinate so I left a stent in place and left the catheter in place on the to see him back in 2 weeks for removal of the Nuñez catheter and removal of the stent at the same time we will leave the stent in for 2 weeks to let this heal up it was a very difficult case took a lot longer than usual to laser the stone. Nuñez catheter was placed at the end of the case since very unlikely he will be able to urinate to go home the catheter. Surgeon: Hood Fletcher Type of Anesthesia: General Drains: stent and nuñez Admit VTE Documentation VTE Present on Admission: No VTE Mechan Device Prophylaxis: SCD's VTE Pharm Prophylaxis ordered?: No
--- NOTE | 2023-05-05 13:58 | SUR.PHASEII ---
LARGE AMOUNT OF BLOOD ON PATIENT'S GOWN AND BLANKETS FROM HIS PENIS. DR. JUÁREZ MADE AWARE AND HE CAME OVER TO SEE THE PATIENT. HE DECIDED TO ADMIT THE PATIENT.
[2023-05-05] MEDS: 0.9% Normal Saline (1000mL) 1,000 ML 125 ML IV ×2 (15:13→23:40)
[2023-05-05] MEDS: Ciprofloxacin 400 MG/200 ML BAG 200 MG IV (18:12)
[2023-05-05] MEDS: Docusate Sodium 100 MG Capsule 200 MG PO (21:28)
[2023-05-05] MEDS: Atorvastatin Calcium 80 MG Tablet PO (21:28)
[2023-05-05] MEDS: Metoprolol Tartrate 25 MG Tablet PO (21:29)
[2023-05-06 02:20] VITALS: BP 152/98; PULSE 97; RESP 18; TEMP 36.8; O2SAT 92
[2023-05-06 02:31] VITALS: O2SAT 96
[2023-05-06] MEDS: Acetaminophen 325 MG Tablet PO (02:32)
[2023-05-06] MEDS: 0.9% Normal Saline (1000mL) 1,000 ML 125 ML IV (06:03)
[2023-05-06] MEDS: Ciprofloxacin 400 MG/200 ML BAG 200 MG IV (06:03)
[2023-05-06 06:29] VITALS: O2SAT 93
[2023-05-06 07:11] LABS: Hematocrit 39.9 % (40-54); Hemoglobin 13.1 g/dL (13.0-16.5); Mean Corp Hgb Conc 32.8 g/dL (32-36); Mean Corpuscular Hgb 29.6 pg (27.0-32.0); Mean Corpuscular Volume 90.3 fL (80-94); Mean Platelet Vol. 10.3 fl (6.2-12.0); Platelet Count 129 K/mm3 (150-450); RBC Distribution Width CV 13.6 % (11.6-14.6); RBC Distribution Width SD 45.7 fl (35.1-43.9); Red Blood Count 4.42 M/mm3 (4.6-6.2); White Blood Count 11.6 K/mm3 (4.4-11.0)
--- NOTE | 2023-05-06 07:37 | PCM.PN.GU ---
Subjective Subjective Status post ureteroscopy and laser of stone very difficult case large prostate, he has a stent in place left the catheter in place kept him overnight because of significant bleeding but now the bleeding settled down so urine is nice and clear he can go home with a catheter do not remove the catheter. Objective Data Objective Data Vital Signs: Vital Signs Temp Pulse Resp BP Pulse Ox O2 Del Method 98.2 F 97 18 152/98 H 93 Room Air 05/06/23 02:20 05/06/23 02:05/06/23 02:05/06/23 02:05/06/23 06:05/06/23 06:29 Oxygen Delivery Method Room Air Weight: 93.5 kg Body Mass Index (BMI) 29.5 Intake & Output: Intake and Output for Last 24 Hours 05/04/23 05/05/23 05/06/23 23:59 23:59 23:59 Intake Total 1486.00 / 1486.00 1006.25 / 1006.25 Output Total 625 / 625 Balance 1466.00 / 1466.00 381.25 / 381.25 Lab / Micro Data 05/06/23 07:02 05/06/23 07:02 Labs: Laboratory Results - last 24 hr 05/06/23 07:02: WBC 11.6 H, RBC 4.42 L, Hgb 13.1, Hct 39.9 L, MCV 90.3, MCH 29.6, MCHC 32.8, RDW Std Deviation 45.7 H, RDW Coeff of Keanu 13.6, Plt Count 129 L, MPV 10.3 Radiography Diagnostic Testing: Radiology Impression KUB X-Ray 05/05/23 08:55 IMPRESSION: No abnormal calcifications identified. Electronically Signed: Geovanny Sullivan MD at 9:16 EDT ,
[2023-05-06 07:39] LABS: Anion Gap 5 (5-15); BUN 24 mg/dL (7-18); BUN/Creat Ratio 17.5 RATIO (10-20); Calcium,Total 8.5 mg/dL (8.5-10.1); Chloride 105 mmol/L (98-107); Creatinine, Serum 1.37 mg/dL (0.70-1.30); EST Glomerular Filtration Rate 53 mL/min (>60); Est Glom Filt Rate - Afr Amer 64 mL/min (>60); Estimated Creatinine Clearance 41.44 ml/min; Glucose 149 mg/dL (74-106); Potassium 4.6 mmol/L (3.5-5.1); Sodium Level 135 mmol/L (136-145)
[2023-05-06 08:09] VITALS: BP 130/87; PULSE 115; RESP 18; TEMP 36.6; O2SAT 95
[2023-05-06 08:16] VITALS: PULSE 115
[2023-05-06] MEDS: Docusate Sodium 100 MG Capsule 200 MG PO (08:16)
[2023-05-06] MEDS: Metoprolol Tartrate 25 MG Tablet PO (08:16)
[2023-05-06] MEDS: Furosemide 40 MG Tablet PO (08:16)
[2023-05-06] MEDS: amLODIPine 5 MG Tablet PO (08:17)
[2023-05-06] MEDS: Lisinopril 40 MG Tablet PO (08:17)
== END 2023-05-06 13:07 | disposition home or self-care (01) ==
LOC: MS3 17:39 → SDC 05-08 10:37 → MS3 05-08 10:37
PROVIDERS: Admitting Provider Urology; Referring Provider Urology; Visit Provider Urology
PROC: 0TJ98ZZ Inspection of Ureter, Via Natural or Artificial Opening Endoscopic (ICD-10-PCS; CPT 52352; principal; 2023-05-05 10:35)
DX: N20.1 Calculus of ureter (principal); I48.11 Longstanding persistent atrial fibrillation; N40.1 Benign prostatic hyperplasia with lower urinary tract symptoms; R31.0 Gross hematuria; Z79.899 Other long term (current) drug therapy; Z79.82 Long term (current) use of aspirin; Z79.01 Long term (current) use of anticoagulants; E78.00 Pure hypercholesterolemia, unspecified; I10 Essential (primary) hypertension
CPT/HCPCS: 52356; 36415; 74018; 76000; 80048; 85027; 96361; 96365; 96366; 99221; J7030; J7120; C1758; C1769; C2617; G0378; J0744; J2405

== ENCOUNTER 2023-05-07 16:46 | Emergency (ER) | payer MEDICARE, SELFPAY ==
[2023-05-07 16:47] VITALS: BP 138/84; PULSE 105; RESP 18; TEMP 36.3; O2SAT 95
[2023-05-07 16:49] VITALS: BMI 30.5
[2023-05-07 17:40] LABS: Bacteria 0 SEEN /hpf (None Seen); Mucous, Urine 0 SEEN /hpf (<or=2+); Squamous Epithelial Cells - UA 0 SEEN /hpf (0-5)
--- NOTE | 2023-05-07 17:41 | EDS_ITS ---
HPI History of Present Illness Chief Complaint: Bolanos C/O Informant: patient and spouse/S.O. Narrative Narrative: Patient presents with hematuria. Patient has a known 8 mm kidney stone on the left. On approximately the he had laser treatment and Bolanos placement for this. He is not sure if he has had a stent placed. He was actually kept in the hospital overnight because he continued to have some bleeding afterwards. His Eliquis was held 3 days prior to the procedure and is still being held. He states he went home. He noticed there is some more blood in the urine today. The has seen a couple very tiny clots but no large ones. The urine has turned pinkish but never gotten pure blood. It is always clear yellow with some pink tinge. Patient states he feels fine. No pain. He is has no nausea vomiting. No fevers. PFSH [facility] Medical History Alcohol use Aneurysm of artery of neck Arthritis Atherosclerotic heart disease of [place] coronary artery without angina pectoris Cardiology follow-up encounter Cerebral embolism with cerebral infarction Essential (primary) hypertension Heartburn High cholesterol History of echocardiogram History of edema History of stress test HLD (hyperlipidemia) Hydronephrosis, left Hypertension Incomplete right bundle branch block Left carotid artery stenosis Longstanding persistent atrial fibrillation Lymphedema New onset atrial fibrillation (04/04/19) Nocturia Non-smoker Shortness of breath on exertion TIA (transient ischemic attack) Ureteral calculus, left Varicose veins of bilateral lower extremities with pain Home Medications nitroglycerin 0.4 mg sublingual tablet 0.4 mg sublingual Q5-15M PRN chest pain 08/15/17 [History Last Taken Unknown] aspirin 81 mg tablet,delayed release 81 mg PO DAILY 10/08/20 [History Last Taken 05/01/23] amlodipine 5 mg tablet 5 mg PO DAILY #90 tabs 07/14/22 [Rx Last Taken 05/05/23] apixaban 2.5 mg tablet (Eliquis) 2.5 mg PO BID #180 tabs 07/14/22 [Rx Last Taken 05/01/23] atorvastatin 80 mg tablet 80 mg PO QHS #90 tabs 07/14/22 [Rx Last Taken Unknown] furosemide 40 mg tablet 40 mg PO DAILY #90 tabs 07/14/22 [Rx Last Taken Unknown] lisinopril 40 mg tablet 40 mg PO DAILY #90 tabs 07/14/22 [Rx Last Taken 05/05/23] metoprolol tartrate 25 mg tablet 25 mg PO BID #180 tabs 07/14/22 [Rx Last Taken 05/05/23] ciprofloxacin HCl 500 mg tablet 500 mg PO BID #10 tabs 05/05/23 [Rx Last Taken Unknown] phenazopyridine 100 mg tablet (Pyridium) 100 mg PO TID PRN pain 7 days #14 tabs 05/05/23 [Rx Last Taken Unknown] tamsulosin 0.4 mg capsule (Flomax) 0.4 mg PO QHS #7 caps 05/05/23 [Rx Last Taken Unknown] Allergy/AdvReac Type Severity Reaction Status Date / Time No Known Allergies Allergy Verified 05/07/23 16:47 Family History Father Kidney disease Mother Colon cancer Daughter Breast cancer Son Hypertension Surgical History H/O coronary artery bypass surgery (03/13/96) History of left heart catheterization (11/03/05) History of left-sided carotid endarterectomy (05/2009) Hx of colonoscopy Hx of cystoscopy Social History Smoking Status: Never smoker alcohol intake: never substance use type: does not use caffeine: Yes Type: coffee Number of servings: 1 and tea Number of servings: 1 what type of physical activity do you participate in: none seatbelt use: always do you feel safe at home: Yes ROS ROS ED ROS Narrative A complete review of systems was performed and is negative except as documented in the history of present illness. Some specific details below. Constitutional: No recent fevers or chills. EYE: No visual complaints ENT: No difficulty swallowing. No swelling. No pain. CV: No chest pain or palpitations. Respiratory: No dyspnea. No hemoptysis. No difficulty taking breaths. GI: No nausea vomiting or change in bowel habits. No abdominal pain or flank pain. : See history of present illness. Musculoskeletal: No recent trauma. No pains. Skin: No rash. Nondiaphoretic. Neuro: No weakness or numbness. Endocrine: No polyuria or polydipsia. EXAM Physical Exam Narrative Exam Narrative: CONSTITUTIONAL: Patient is nontoxic in appearance. The patient looks comfortable. HEENT: No notable trauma. Mucous membranes moist. EYES: No conjunctival injection. No pallor. CARDIOVASCULAR: Regular rate. Regular rhythm. No notable murmur. No JVD. RESPIRATORY: No respiratory distress. Breathing is unlabored. No wheezes. No rhonchi. No rales. No pain with a deep breath. GASTROINTESTINAL: Not distended. Bowel sounds are normal. No tenderness. No guarding. No rebound. No palpable mass. No bruit. GENITOURINARY: No tenderness over the bladder. No CVA tenderness on either side. Bolanos looks to be in place externally. He has urine that is translucent but does have a red tinge to it. I do not see any clots in the bag. But it looks like he may be having leakage around the catheter at the penis. He does not have fresh urine in the tube. MUSCULOSKELETAL: Atraumatic. No tenderness NEUROLOGICAL: Patient is alert and appropriate. No focal deficit noted. SKIN: No noted rashes. No diaphoresis. PSYCHIATRIC: Patient is calm. Mood is appropriate. Const Vital Signs: 05/07/23 16:47 05/07/23 20:47 Temperature 97.3 F L Temperature Source Temporal Pulse Rate 105 H 85 Respiratory Rate 18 17 Blood Pressure 138/84 H 142/87 H Blood Pressure Mean 102 105 Pulse Ox 95 98 Oxygen Delivery Method Room Air Room Air MDM MDM MDM Narrative Medical decision making narrative: CBC shows no acute abnormalities including no elevated white count or anemia. Platelets are slightly low at 122. Patient's electrolytes show mild elevation of BUN and creatinine. He is given some IV fluids here Urinalysis shows large number of red cells. He also has white cells. But he has nitrites leukocyte esterase and cloudy urine. He was given a dose of Rocephin. We attempted to irrigate his catheter. We could not get anything to irrigate. We tried to put fluid in but at best we would get some directly out of the penis around the Bolanos. We ended up switching catheter and then switching to a larger 24 Jordanian. He gets some urine out. But we have put this all the way in all the way up to its hub. We have never gotten a large amount of urine out. He still feels as though he needs to urinate but is not having pain. Bladder scan shows 500 cc in there. When we try to irrigate we will get back a little bit of the saline but some of it also comes out around the catheter at the penis. No repositioning will get any significant large flow. He continues to feel as though he needs to urinate so I think his bladder is full but we are not draining it. Patient does have a longstanding large hydrocele. But I think our catheter should still be plenty long enough to get into his bladder. I have placed a call to his surgeon/urologist, Dr. Fletcher. He came in to see the patient. He did ultrasound and the bladder is not distended. He thinks that the stent has slid down somewhat. But he remove the catheter on the patie nt. He is okay with patient going home now. He will follow him up tomorrow. Lab Data Attestation: I reviewed the patient's lab results. Labs: Laboratory Results - last 24 hr 05/07/23 17:30 WBC 8.4 RBC 4.26 L Hgb 13.0 Hct 38.9 L MCV 91.3 MCH 30.5 MCHC 33.4 RDW Std Deviation 48.0 H RDW Coeff of Keanu 14.3 Plt Count 122 L MPV 10.6 Immature Gran % (Auto) 0.400 Neut % (Auto) 76.2 H Lymph % (Auto) 10.6 L [place] % (Auto) 11.0 H Eos % (Auto) 1.4 Baso % (Auto) 0.4 Absolute Neuts (auto) 6.4 Absolute Lymphs (auto) 0.89 Nucleated RBC % 0 Sodium 138 Potassium 3.7 Chloride 105 Carbon Dioxide 28.0 Anion Gap 5 BUN 27 H Creatinine 1.61 H Estim Creat Clear Calc 35.27 Est GFR (MDRD) Af Amer 53 L Est GFR (MDRD) Non-Af 44 L BUN/Creatinine Ratio 16.8 Glucose 105 Calcium 8.5 Urine Color Umm Urine Clarity Cloudy Urine pH 6.0 Ur Specific [place] 1.015 Urine Protein 100 H Urine Glucose (UA) Normal Urine Ketones Negative Urine Occult Blood 250 H Urine Nitrite Positive H Urine Bilirubin Negative Urine Urobilinogen Normal Ur Leukocyte Esterase 100 H Urine RBC 50-100 SEEN Urine WBC 10-25 SEEN Ur Squamous Epith Cells 0 SEEN Urine Bacteria 0 SEEN Urine Mucus 0 SEEN Discharge Plan Triage Chief Complaint: Bolanos C/O ED Provider: Kofi Plascencia Dx/Rx/DC Orders Clinical Impression: Hematuria, History of urologic surgery Instructions: ED Hematuria Prescriptions: No Action nitroglycerin 0.4 mg tablet, sublingual 0.4 mg SUBLINGUAL Q5-15M PRN (Reason: chest pain ) aspirin 81 mg tablet,delayed release (DR/EC) 81 mg PO DAILY amlodipine 5 mg tablet 5 mg PO DAILY Qty: 90 3RF Eliquis 2.5 mg tablet 2.5 mg PO BID Qty: 180 3RF Hold Instructions: S/P SURGERY atorvastatin 80 mg tablet 80 mg PO QHS Qty: 90 3RF furosemide 40 mg tablet 40 mg PO DAILY Qty: 90 3RF lisinopril 40 mg tablet 40 mg PO DAILY Qty: 90 3RF metoprolol tartrate 25 mg tablet 25 mg PO BID Qty: 180 3RF tamsulosin [Flomax] 0.4 mg capsule 0.4 mg PO QHS Qty: 7 0RF phenazopyridine [Pyridium] 100 mg tablet 100 mg PO TID PRN (Reason: pain) 7 Days Qty: 14 0RF ciprofloxacin HCl 500 mg tablet 500 mg PO BID Qty: 10 0RF Primary Care Provider: Care Physician,No Primary Referrals: Hood Fletcher MD [Med Staff - Active Staff] - 1 Day Care Physician,No Primary [Primary Care Provider] - Disposition Disposition: Home, Self Care
[2023-05-07 17:55] LABS: Absolute Lymphocyte Count 0.89 X10^3/uL (0.83-4.51); Absolute Neutrophil Count 6.4 X10^3/uL (2.0-7.7); Basophil# 0.03 X10^3/uL; Basophil% 0.4 % (0-1); Eosinophil# 0.12 X10^3/uL; Eosinophils% 1.4 % (0-5); Hematocrit 38.9 % (40-54); Lymphocyte # 0.89 X10^3/ul (0.83-4.51); Lymphocyte % 10.6 % (19-41); Mean Corp Hgb Conc 33.4 g/dL (32-36); Mean Corpuscular Hgb 30.5 pg (27.0-32.0); Mean Corpuscular Volume 91.3 fL (80-94); Mean Platelet Vol. 10.6 fl (6.2-12.0); Monocyte# 0.93 X10^3/uL; NRBC Flagged by Analyzer 0 % (0-5); Neutrophil # 6.43 X10^3/uL (2.7-7.7); Neutrophil % 76.2 % (47-70); Platelet Count 122 K/mm3 (150-450); RBC Distribution Width CV 14.3 % (11.6-14.6); Red Blood Count 4.26 M/mm3 (4.6-6.2); White Blood Count 8.4 K/mm3 (4.4-11.0)
[2023-05-07 18:10] LABS: Color, Urine Amber (Yellow); Glucose, Dipstick Normal (Normal); Ketone-Dipstick Negative (Negative); Leukocyte Esterase-Dipstick 100 /ul (Negative); Nitrite-Dipstick Positive (Negative); Occult Blood-Urine 250 /ul (Negative); Protein-Dipstick 100 mg/dl (Negative); Specific Gravity, Urine 1.015 (1.002-1.030); Urine Bilirubin Dipstick Negative (Negative); Urine Clarity Cloudy (Clear); Urine Urobilinogen Normal (Normal)
[2023-05-07 18:17] LABS: Anion Gap 5 (5-15); BUN 27 mg/dL (7-18); BUN/Creat Ratio 16.8 RATIO (10-20); Calcium,Total 8.5 mg/dL (8.5-10.1); Chloride 105 mmol/L (98-107); Creatinine, Serum 1.61 mg/dL (0.70-1.30); EST Glomerular Filtration Rate 44 mL/min (>60); Est Glom Filt Rate - Afr Amer 53 mL/min (>60); Estimated Creatinine Clearance 35.27 ml/min; Glucose 105 mg/dL (74-106); Potassium 3.7 mmol/L (3.5-5.1); Sodium Level 138 mmol/L (136-145)
[2023-05-07 18:19] LABS: Red Blood Cells-Urine 50-100 SEEN /hpf (0-5); White Blood Cells 10-25 SEEN /hpf (0-5)
[2023-05-07] MEDS: 0.9% Normal Saline (500mL Bag) 500 ML 999 ML IV (18:49)
[2023-05-07] MEDS: Ceftriaxone 1 GM/50 ML BAG IV (18:49)
[2023-05-07 20:47] VITALS: BP 142/87; PULSE 85; RESP 17; O2SAT 98
--- NOTE | 2023-05-07 20:59 | ED.RN ---
[address] on arrival, chief complaint leaking urine and decreased urine output. 300cc tea/red urine in nuñez bag, scrotal edema, leaking urine on assessment, pt. reported urge to urinate. 427-479 cc bladder scanned. physician order for manual irrigation with 500cc normal saline. 16 german catheter irrigated 500cc with 600cc pink return and leaking around nuñez, pt. tolerated procedure well. physician notified of results. instructed to place a 3-way catheter and manually irrigate to remove potential clots. repeat bladder scan reported greater than 527 cc. 22 german 3-way catheter placed with immediate return of 100cc red urine return. Catheter irrigated with more normal saline with decreased return and retention, physician at bedside. Instructed to remove catheter and insert a [address] patient tolerated insertion well. minimal urine return upon placement with clots evident, physician still at bedside to troubleshoot. Manual irrigation by physician yielded, equal intake and output, but no urine flow by gravity, and continued leaking around nuñez insertion site. Scrotal edema, bladder distention present. decision made by provider to consult urology.
--- NOTE | 2023-05-07 21:21 | PCM.CONS.B ---
Consult Date of Consult: 05/07/23 Reason for Consult Is an 82-year-old male history of a very complicated distal ureteral surgery for stone comes in the ER has been leaking around the catheter on inspection by ultrasound what happened is that the stent is migrated into the distal prostatic urethra and therefore when you flush the catheter just comes out immediately around the catheter and he has been draining urine around the catheter. The urine is clearing her to remove the catheter he can go home without the catheter and I told him to follow-up tomorrow for cystoscopy and stent removal in the office tomorrow if it still leaking or I may try to reposition it in the office. He can go home we will leave the catheter out and have instructions to call me in the office in the morning if he still having leakage problems.
== END 2023-05-07 21:55 | disposition home or self-care (01) ==
PROVIDERS: Emergency Provider Emergency Medicine; Visit Provider Emergency Medicine
DX: R31.9 Hematuria, unspecified (principal); I25.10 Atherosclerotic heart disease of native coronary artery without angina pectoris; Z79.01 Long term (current) use of anticoagulants; Z86.73 Personal history of transient ischemic attack (TIA), and cerebral infarction without residual deficits
CPT/HCPCS: 51702; 80048; 81001; 85025; 96365; 96366; 99285; J7030; A4216

== ENCOUNTER → 2023-05-16 | Outpatient (CLI) | payer MEDICARE, SELFPAY ==
--- NOTE | 2023-05-16 12:55 | MRI_ITS ---
EXAM: MR ABDOMEN WITHOUT AND WITH INTRAVENOUS CONTRAST CLINICAL INDICATION: POLYCYSTIC KIDNEY DISEASE,GROSS HEMATURIA TECHNIQUE: Multiplanar and multisequence MR images of the abdomen without and with intravenous contrast. CONTRAST: IV Yes YES COMPARISON: CT abdomen and pelvis 03/27/2023 FINDINGS: LOWER THORAX: Normal. No pleural effusion. LIVER: Normal. Normal morphology. No focal mass. GALLBLADDER AND BILE DUCTS: Multiple small stones are present within the gallbladder. No gallbladder distention or wall edema. No intra- or extrahepatic biliary ductal dilation. PANCREAS: Normal. No focal cystic or solid mass. SPLEEN: Normal. Normal size without focal cystic or solid mass. ADRENALS: Normal. No nodules. KIDNEYS AND URETERS: 3.4 x 1.8 cm mass occupies the lateral aspect of the right kidney that interpole level. 15 mm area of contrast enhancement noted within the lateral segment of the mass. Multiple subcentimeter renal cysts noted bilaterally. Persistent mild left hydronephrosis and hydroureter. No discrete evidence of ureteral filling defect. Normal renal size and position. INTRAPERITONEAL SPACE: Normal. No ascites or other fluid collection. No free air. VASCULATURE: Normal. Abdominal aorta is non-dilated. LYMPH NODES: No enlarged lymph nodes. MRI/MRI Abd WITH and W/O Contrast IMPRESSION: 1. Solid 3.4 x 1.8 cm minimally enhancing right renal mass which may represent benign or malignant neoplasm. 2. Left hydronephrosis and hydroureter. 3. Cholelithiasis. Electronically Signed: Marlo Garcia MD at 8:38 EDT ,
== END | disposition home or self-care (01) ==
PROVIDERS: Referring Provider Urology; Visit Provider Urology
DX: N40.1 Benign prostatic hyperplasia with lower urinary tract symptoms (principal); N20.0 Calculus of kidney; R31.0 Gross hematuria
CPT/HCPCS: 74183; A9575

== ENCOUNTER → 2023-12-06 | Outpatient (CLI) | payer MEDICARE, SELFPAY ==
[2023-12-06 10:58] LABS: Absolute Lymphocyte Count 1.09 X10^3/uL (0.83-4.51); Absolute Neutrophil Count 2.9 X10^3/uL (2.0-7.7); Basophil# 0.02 X10^3/uL; Basophil% 0.4 % (0-1); Eosinophil# 0.12 X10^3/uL; Eosinophils% 2.6 % (0-5); Hematocrit 43.4 % (40-54); Hemoglobin 13.9 g/dL (13.0-16.5); Lymphocyte # 1.09 X10^3/ul (0.83-4.51); Lymphocyte % 23.4 % (19-41); Mean Corpuscular Hgb 29.3 pg (27.0-32.0); Mean Corpuscular Volume 91.6 fL (80-94); Mean Platelet Vol. 10.7 fl (6.2-12.0); Monocyte# 0.53 X10^3/uL; Monocyte% 11.4 % (0-10); NRBC Flagged by Analyzer 0 % (0-5); Neutrophil # 2.88 X10^3/uL (2.7-7.7); Platelet Count 170 K/mm3 (150-450); RBC Distribution Width CV 13.5 % (11.6-14.6); Red Blood Count 4.74 M/mm3 (4.6-6.2); White Blood Count 4.7 K/mm3 (4.4-11.0)
[2023-12-06 11:19] LABS: Vitamin D,25 Hydroxy 14.3 ng/mL
[2023-12-06 11:26] LABS: ALB/GLOB Ratio 1.1 RATIO (0.9-2.4); AST(SGOT) 27 U/L (15-37); Alanine Aminotransfer ALT/SGPT 25 U/L (16-61); Albumin, Serum 3.8 g/dL (3.2-5.0); Alkaline Phosphatase 93 U/L (45-117); Anion Gap 3 (5-15); BUN 19 mg/dL (7-18); BUN/Creat Ratio 18.3 RATIO (10-20); Calcium,Total 9.1 mg/dL (8.5-10.1); Chloride 106 mmol/L (98-107); Cholesterol 126 mg/dL (200); Creatinine, Serum 1.04 mg/dL (0.70-1.30); EST Glomerular Filtration Rate 72 mL/min (>60); Est Glom Filt Rate - Afr Amer 87 mL/min (>60); Globulin 3.4 g/dL (2.2-4.2); Glucose 98 mg/dL (74-106); High Density Lipoprotein 60 mg/dL; Potassium 3.9 mmol/L (3.5-5.1); Protein, Total 7.2 g/dL (6.4-8.2); Sodium Level 140 mmol/L (136-145); Thyroid Stim Hormone (TSH) 1.57 uIU/mL (0.358-3.74); Triglycerides 100 mg/dL; Very Low Density Lipoprotein 20 mg/dL (5-40)
== END | disposition home or self-care (01) ==
PROVIDERS: PCP Family Medicine; Visit Provider Family Medicine
DX: I10 Essential (primary) hypertension (principal); N40.0 Benign prostatic hyperplasia without lower urinary tract symptoms; R60.9 Edema, unspecified; E55.9 Vitamin D deficiency, unspecified; Z12.5 Encounter for screening for malignant neoplasm of prostate
CPT/HCPCS: 36415; 80053; 80061; 82306; 84153; 84443; 85025; G0103

== ENCOUNTER → 2024-01-04 | Outpatient (CLI) | payer MEDICARE, SELFPAY ==
--- NOTE | 2024-01-04 13:00 | CT_ITS ---
STUDY: CT ABDOMEN AND PELVIS WITH CONTRAST REASON FOR EXAM: Male, 83 years old. Neoplasm of uncertain behavior of right kidney RADIATION DOSAGE (If Supplied By Facility): CTDIvol = ( 20.23 ) mGy, DLP = ( 1712.87 ) mGycm TECHNIQUE: Transaxial images were obtained from the dome of the diaphragm to the symphysis pubis without oral contrast. IV 100mL Isovue-300 was administered. Sagittal and coronal images were reconstructed. Individualized dose optimization techniques were used for this CT. COMPARISON: Comparison is made with prior examination of March 27, 2023. FINDINGS: The visualized lung bases are unremarkable. Coronary artery calcification. Normal liver. There are multiple gallstones. Normal spleen. Normal pancreas. Normal bilateral adrenal glands. There is a 3.5 cm x 2.2 cm x 2.3 cm hypoechoic well-defined nodular density in the upper lateral pole of the right kidney. This is not a typical cyst. A neoplastic process should be ruled out. Punctate calculus in the anterior midpole calyx of the left kidney. No obstructive uropathy is seen at this time. Normal visualized stomach. Normal small intestine. There are scattered colonic diverticula consistent with diverticulosis. The appendix is visualized and appears normal. There is diffuse atherosclerotic calcification of the abdominal aorta and its major visceral branches, without a demonstrated aneurysm. Normal inferior vena cava. Normal retroperitoneum. Normal urinary bladder. There is enlargement of the prostate gland. Prostate measures 5.7 cm x 5.8 cm. This causes indentation of the bladder base. Calcifications are seen within the prostate gland. Normal abdominal wall. There are diffuse degenerative changes of the visualized lumbar spine. CT/Abdomen/Pelvis W IV Cont ONLY IMPRESSION: 3.5 cm x 2.2 cm x 2.3 some hypoechoic mass in the upper lateral pole of the right kidney. A neoplastic process should BE ruled out. Multiple gallstones. Prostatic enlargement with indentation at the bladder base. Electronically Signed: Elier Llanos MD at 14:33 EDT ,
== END | disposition home or self-care (01) ==
LOC: CT 12:58
PROVIDERS: PCP Family Medicine; Referring Provider Urology; Visit Provider Urology
DX: D41.01 Neoplasm of uncertain behavior of right kidney (principal)
CPT/HCPCS: 74177; Q9967

== ENCOUNTER 2024-01-10 11:40 | Day surgery (SDC) | payer MEDICARE, SELFPAY ==
[2024-01-10] VITALS (8 sets, daily range): BP systolic 141–160; BP diastolic 83–99; PULSE 84–99; RESP 16–18; TEMP 36.2–37.2; O2SAT 92–97; BMI 30.6
[2024-01-10] MEDS: Lactated Ringers 1,000 ML 15 ML IV (12:09)
--- NOTE | 2024-01-10 12:26 | PRE.ANES_ITS ---
ASA Classification* ASA Classification ASA Classification: 3 Assessment & Plan Anesthesia* History Source History Obtained from:: Patient and Chart Anesthesia Assessment Anesthesia Assessment: Discussed sedation and/or anesthesia options, risks, benefits, and alternatives with patient/parents/legal guardian. Questions invited. The patient/parents/legal guardian/POA seems to understand and agrees to proceed with anesthesia plan. Reviewed the physical assessment, medical history, allergy history and patient home medications list prior to surgery/procedure/anesthetic and documented any changes. Performed airway and anesthesia risk assessments. 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 When Was Last Pacemaker Check QUESTION #4 FULL TEXT: You/Your Family Experience fever (hyperthermia) with Anesthesia PONV PONV - armature winder repair helper: PONV - armature winder repair helper Female No 01/05/24 10:39 HX of Motion Sickness No 01/05/24 10:39 HX of N/V After Surgery No 01/05/24 10:39 Non-Smoker Yes 01/05/24 10:39 Duration of Surgery greater No 01/05/24 10:39 than 60 minutes Number of Risk Factors 1 01/05/24 10:39 PONV Score Low Risk 01/05/24 10:39 Height & Weight Height & Weight: Anesthesia: Height & Weight Height 1.75 m 01/10/24 12:01 Weight: 94 kg 01/10/24 12:01 Body Mass Index (BMI) 30.6 01/10/24 12:01 Respiratory Assessment Respiratory Assessment - armature winder repair helper: Respiratory Tract Infection Hx - armature winder repair helper Hx Respiratory Tract Infection No 01/05/24 10:39 STOP Sleep Apnea STOP Sleep Apnea - armature winder repair helper: STOP Sleep Apnea - armature winder repair helper Hx Hypertension Yes: CONTROLLED WITH MEDS 01/05/24 10:39 Hx Sleep Apnea No 01/05/24 10:39 CPAP BIPAP Do you snore loudly (louder No 01/05/24 10:39 than talking or can be heard Do you often feel tired/ No 01/05/24 10:39 fatigued/ sleepy during daytime? Has anyone observed you stop No 01/05/24 10:39 breathing during sleep? STOP Results Negative 01/05/24 10:39 QUESTION #5 FULL TEXT : Do you snore loudly (louder than talking or can be heard through closed doors)? Tobacco Use History Tobacco Use History - armature winder repair helper: Tobacco Use History - armature winder repair helper Tobacco Use Smoking Status Never smoker 01/05/24 10:39 Hx Tobacco Use No 01/05/24 10:39 Years Smoking Packs Smoked per Day Smoking Cessation Date was within the last 15 years Hx Smoking Cessation Date Hx Smoking Cessation No 01/05/24 10:39 Counseling Hematologic Medial History Hematologic Hx - armature winder repair helper: Hematologic Medical Hx - documentation specialist Hx of Blood Transfusion No 01/05/24 10:39 Hx of Transfusion in last 3 No 01/05/24 10:39 Months Date of Last Transfusion (if within last 3 months) Ever experience any problems No 01/05/24 10:39 with transfusion(s)? Specify any problems Hx of Preganancy in last 3 N/A 01/05/24 10:39 Months Nurse Filling Out Transfusion VCHRISTIN 01/05/24 10:39 & Questions: Date: 01/05/24 01/05/24 10:39 Time: 10:40 01/05/24 10:39 Patient unable to answer at this time (ie. confused, unrespo /Reproduction History /Reproductive History - armature winder repair helper: /Reproductive Hx- armature winder repair helper Hx Now No 01/05/24 10:39 Gestational Age (in weeks): EDC: Hx Hx Para Hx Section SAB No 01/05/24 10:39 Active Medications Active Medications: Current Medications Generic Name Dose Route Start Last Admin Trade Name Freq PRN Reason Stop Dose Admin Cefazolin Sodium 2 gm/ Sodium 110 mls @ 150 mls/hr 01/10/24 13:50 Chloride IV 01/10/24 14:33 PREOP ONE Lactated Ringer's 1,000 mls @ 15 mls/hr 01/10/24 12:00 01/10/24 12:09 IV 15 mls/hr .Q48H LARRY Administration Anesthesia Focused Assessment* Temperature: 98 F Pulse Rate: 84 Blood Pressure: 155/99 Respiratory Rate: 16 Pulse Ox: 95 Airway Assessment Mouth opens (cm): 3 Mallampati Score: II Teeth Condition: Intact Neck Range of motion (ROM): Full ROM Pertinent Findings EKG Pertinent Findings:: Afib, 73 bpm 04/04/19 Stress Test Pertinent Findings:: neg - 63^EF Consults Pertinent Findings:: cardio 09/05/23 cads/cabg afib htn stable Focused Labs Anesthesia Preop lab: CBC WBC 4.7 K/mm3 (4.4-11.0) 12/06/23 09:57 RBC 4.74 M/mm3 (4.6-6.2) 12/06/23 09:57 Hgb 13.9 g/dL (13.0-16.5) 12/06/23 09:57 Hct 43.4 % (40-54) 12/06/23 09:57 Plt Count 170 K/mm3 (150-450) 12/06/23 09:57 CHEMISTRY Potassium 3.9 mmol/L (3.5-5.1) 12/06/23 09:57 Sodium 140 mmol/L (136-145) 12/06/23 09:57 Magnesium 1.8 mg/dL (1.6-2.6) 04/21/18 06:10 BUN 19 mg/dL (7-18) H 12/06/23 09:57 Creatinine 1.04 mg/dL (0.70-1.30) 12/06/23 09:57 Glucose 98 mg/dL (74-106) 12/06/23 09:57 TSH 1.57 uIU/mL (0.358-3.74) 12/06/23 09:57 COAG PT 13.8 SECONDS (11.7-14.9) 04/21/18 06:10 Review of Systems (Anesthesia) ROS Narrative System reviewed and no additional complaints, except as documented. 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 Nocturia HLD (hyperlipidemia) Hydronephrosis, left Ureteral calculus, left Home Medications ?Medication ?Instructions ?Recorded ?Last Taken ?Type nitroglycerin 0.4 mg sublingual 0.4 mg sublingual Q5-15M PRN chest 08/15/17 Unknown History tablet pain aspirin 81 mg tablet,delayed 81 mg PO DAILY 10/08/20 12/31/23 History release amlodipine 5 mg tablet 5 mg PO DAILY #90 tabs 06/27/23 01/10/24 Rx atorvastatin 80 mg tablet 80 mg PO QHS #90 tabs 06/27/23 Unknown Rx furosemide 40 mg tablet 40 mg PO DAILY #90 tabs 06/27/23 Unknown Rx lisinopril 40 mg tablet 40 mg PO DAILY #90 tabs 06/27/23 01/10/24 Rx metoprolol tartrate 25 mg tablet 25 mg PO BID #180 tabs 06/27/23 Unknown Rx apixaban 2.5 mg tablet (Eliquis) 2.5 mg PO BID #180 tabs 09/18/23 01/06/24 Rx Allergy/AdvReac Type Severity Reaction Status Date / Time No Known Allergies Allergy Verified 01/10/24 11:59 Family History Father Kidney disease Mother Colon cancer Daughter Breast cancer Son Hypertension Surgical History History of ureteroscopy Hx of colonoscopy Hx of cystoscopy History of left heart catheterization (11/03/05) History of left-sided carotid endarterectomy (05/2009) H/O coronary artery bypass surgery (03/13/96) Social History Smoking Status: Never smoker alcohol intake: never substance use type: does not use caffeine: Yes Type: coffee Number of servings: 1 and tea Number of servings: 1 what type of physical activity do you participate in: none seatbelt use: always do you feel safe at home: Yes
--- NOTE | 2024-01-10 12:48 | PCM.PRE.AN2 ---
ASA Classification* ASA Classification ASA Classification: 3 Assessment & Plan Anesthesia* Anesthesia Assessment Anesthesia Assessment: Discussed sedation and/or anesthesia options, risks, benefits, and alternatives with patient/parents/legal guardian. Questions invited. The patient/parents/legal guardian/POA seems to understand and agrees to proceed with anesthesia plan. Reviewed the physical assessment, medical history, allergy history and patient home medications list prior to surgery/procedure/anesthetic and documented any changes. Performed airway and anesthesia risk assessments. 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 When Was Last Pacemaker Check QUESTION #4 FULL TEXT: You/Your Family Experience fever (hyperthermia) with Anesthesia PONV PONV - industrial/organizational psychologist: PONV - industrial/organizational psychologist Female No 01/05/24 10:39 HX of Motion Sickness No 01/05/24 10:39 HX of N/V After Surgery No 01/05/24 10:39 Non-Smoker Yes 01/05/24 10:39 Duration of Surgery greater No 01/05/24 10:39 than 60 minutes Number of Risk Factors 1 01/05/24 10:39 PONV Score Low Risk 01/05/24 10:39 Height & Weight Height & Weight: Anesthesia: Height & Weight Height 1.75 m 01/10/24 12:01 Weight: 94 kg 01/10/24 12:01 Body Mass Index (BMI) 30.6 01/10/24 12:01 Respiratory Assessment Respiratory Assessment - industrial/organizational psychologist: Respiratory Tract Infection Hx - industrial/organizational psychologist Hx Respiratory Tract Infection No 01/05/24 10:39 STOP Sleep Apnea STOP Sleep Apnea - industrial/organizational psychologist: STOP Sleep Apnea - industrial/organizational psychologist Hx Hypertension Yes: CONTROLLED WITH MEDS 01/05/24 10:39 Hx Sleep Apnea No 01/05/24 10:39 CPAP BIPAP Do you snore loudly (louder No 01/05/24 10:39 than talking or can be heard Do you often feel tired/ No 01/05/24 10:39 fatigued/ sleepy during daytime? Has anyone observed you stop No 01/05/24 10:39 breathing during sleep? STOP Results Negative 01/05/24 10:39 QUESTION #5 FULL TEXT : Do you snore loudly (louder than talking or can be heard through closed doors)? Tobacco Use History Tobacco Use History - industrial/organizational psychologist: Tobacco Use History - industrial/organizational psychologist Tobacco Use Smoking Status Never smoker 01/05/24 10:39 Hx Tobacco Use No 01/05/24 10:39 Years Smoking Packs Smoked per Day Smoking Cessation Date was within the last 15 years Hx Smoking Cessation Date Hx Smoking Cessation No 01/05/24 10:39 Counseling Hematologic Medial History Hematologic Hx - industrial/organizational psychologist: Hematologic Medical Hx - brass plater Hx of Blood Transfusion No 01/05/24 10:39 Hx of Transfusion in last 3 No 01/05/24 10:39 Months Date of Last Transfusion (if within last 3 months) Ever experience any problems No 01/05/24 10:39 with transfusion(s)? Specify any problems Hx of Preganancy in last 3 N/A 01/05/24 10:39 Months Nurse Filling Out Transfusion VCHRISTIN 01/05/24 10:39 & Questions: Date: 01/05/24 01/05/24 10:39 Time: 10:40 01/05/24 10:39 Patient unable to answer at this time (ie. confused, unrespo /Reproduction History /Reproductive History - industrial/organizational psychologist: /Reproductive Hx- industrial/organizational psychologist Hx Now No 01/05/24 10:39 Gestational Age (in weeks): EDC: Hx Hx Para Hx Section SAB No 01/05/24 10:39 Active Medications Active Medications: Current Medications Generic Name Dose Route Start Last Admin Trade Name Freq PRN Reason Stop Dose Admin Cefazolin Sodium 2 gm/ Sodium 110 mls @ 150 mls/hr 01/10/24 13:50 Chloride IV 01/10/24 14:33 PREOP ONE Lactated Ringer's 1,000 mls @ 15 mls/hr 01/10/24 12:00 01/10/24 12:09 IV 15 mls/hr .Q48H LARRY Administration Anesthesia Focused Assessment* Temperature: 98 F Pulse Rate: 84 Blood Pressure: 155/99 Respiratory Rate: 16 Pulse Ox: 95 Airway Assessment Mouth opens (cm): 3 Mallampati Score: II Focused Labs Anesthesia Preop lab: CBC WBC 4.7 K/mm3 (4.4-11.0) 12/06/23 09:57 RBC 4.74 M/mm3 (4.6-6.2) 12/06/23 09:57 Hgb 13.9 g/dL (13.0-16.5) 12/06/23 09:57 Hct 43.4 % (40-54) 12/06/23 09:57 Plt Count 170 K/mm3 (150-450) 12/06/23 09:57 CHEMISTRY Potassium 3.9 mmol/L (3.5-5.1) 12/06/23 09:57 Sodium 140 mmol/L (136-145) 12/06/23 09:57 Magnesium 1.8 mg/dL (1.6-2.6) 04/21/18 06:10 BUN 19 mg/dL (7-18) H 12/06/23 09:57 Creatinine 1.04 mg/dL (0.70-1.30) 12/06/23 09:57 Glucose 98 mg/dL (74-106) 12/06/23 09:57 TSH 1.57 uIU/mL (0.358-3.74) 12/06/23 09:57 COAG PT 13.8 SECONDS (11.7-14.9) 04/21/18 06:10 Review of Systems (Anesthesia) ROS Narrative System reviewed and no additional complaints, except as documented. 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 Nocturia HLD (hyperlipidemia) Hydronephrosis, left Ureteral calculus, left Home Medications ?Medication ?Instructions ?Recorded ?Last Taken ?Type nitroglycerin 0.4 mg sublingual 0.4 mg sublingual Q5-15M PRN chest 08/15/17 Unknown History tablet pain aspirin 81 mg tablet,delayed 81 mg PO DAILY 10/08/20 12/31/23 History release amlodipine 5 mg tablet 5 mg PO DAILY #90 tabs 06/27/23 01/10/24 Rx atorvastatin 80 mg tablet 80 mg PO QHS #90 tabs 06/27/23 Unknown Rx furosemide 40 mg tablet 40 mg PO DAILY #90 tabs 06/27/23 Unknown Rx lisinopril 40 mg tablet 40 mg PO DAILY #90 tabs 06/27/23 01/10/24 Rx metoprolol tartrate 25 mg tablet 25 mg PO BID #180 tabs 06/27/23 Unknown Rx apixaban 2.5 mg tablet (Eliquis) 2.5 mg PO BID #180 tabs 09/18/23 01/06/24 Rx Allergy/AdvReac Type Severity Reaction Status Date / Time No Known Allergies Allergy Verified 01/10/24 11:59 Family History Father Kidney disease Mother Colon cancer Daughter Breast cancer Son Hypertension Surgical History History of ureteroscopy Hx of colonoscopy Hx of cystoscopy History of left heart catheterization (11/03/05) History of left-sided carotid endarterectomy (05/2009) H/O coronary artery bypass surgery (03/13/96) Social History Smoking Status: Never smoker alcohol intake: never substance use type: does not use caffeine: Yes Type: coffee Number of servings: 1 and tea Number of servings: 1 what type of physical activity do you participate in: none seatbelt use: always do you feel safe at home: Yes
[2024-01-10] MEDS: Cefazolin 2 GM in 0.9% Normal Saline (100mL Bag) 100 ML IV (14:19)
[2024-01-10] MEDS: Bupivacaine Mpf 0.5% 30 ML VIAL (15:09)
--- NOTE | 2024-01-10 15:16 | PCM.HP.STD ---
HPI - General General Date of Admission: 01/10/24 Date of Service: 01/10/24 Chief Complaint: Large bilateral hydroceles HPI Narrative TIM DAWSON, is a 83 M who presents for removal of large bilateral symptomatic hydroceles [facility] Medical History Alcohol use Arthritis High cholesterol Heartburn Non-smoker Shortness of breath on exertion History of edema History of echocardiogram History of stress test Cardiology follow-up encounter Hypertension Atherosclerotic heart disease of [place] coronary artery without angina pectoris Lymphedema Longstanding persistent atrial fibrillation Incomplete right bundle branch block TIA (transient ischemic attack) Left carotid artery stenosis New onset atrial fibrillation (04/04/19) Essential (primary) hypertension 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 Nocturia HLD (hyperlipidemia) Hydronephrosis, left Ureteral calculus, left Home Medications ?Medication ?Instructions ?Recorded ?Last Taken ?Type nitroglycerin 0.4 mg sublingual 0.4 mg sublingual Q5-15M PRN chest 08/15/17 Unknown History tablet pain aspirin 81 mg tablet,delayed 81 mg PO DAILY 10/08/20 12/31/23 History release amlodipine 5 mg tablet 5 mg PO DAILY #90 tabs 06/27/23 01/10/24 Rx atorvastatin 80 mg tablet 80 mg PO QHS #90 tabs 06/27/23 Unknown Rx furosemide 40 mg tablet 40 mg PO DAILY #90 tabs 06/27/23 Unknown Rx lisinopril 40 mg tablet 40 mg PO DAILY #90 tabs 06/27/23 01/10/24 Rx metoprolol tartrate 25 mg tablet 25 mg PO BID #180 tabs 06/27/23 Unknown Rx apixaban 2.5 mg tablet (Eliquis) 2.5 mg PO BID #180 tabs 09/18/23 01/06/24 Rx Allergy/AdvReac Type Severity Reaction Status Date / Time No Known Allergies Allergy Verified 01/10/24 11:59 Family History Father Kidney disease Mother Colon cancer Daughter Breast cancer Son Hypertension Surgical History History of ureteroscopy Hx of colonoscopy Hx of cystoscopy History of left heart catheterization (11/03/05) History of left-sided carotid endarterectomy (05/2009) H/O coronary artery bypass surgery (03/13/96) Social History Smoking Status: Never smoker alcohol intake: never substance use type: does not use caffeine: Yes Type: coffee Number of servings: 1 and tea Number of servings: 1 what type of physical activity do you participate in: none seatbelt use: always do you feel safe at home: Yes Vital Signs Vital Signs Vital Signs: 01/10/24 12:01 01/10/24 12:01 01/10/24 12:39 Temperature 98 F 98 F Temperature Source Temporal Pulse Rate 84 84 Respiratory Rate 16 16 Respiratory Pattern Normal Blood Pressure 155/99 H 155/99 H Blood Pressure Mean 117 Blood Pressure Source Monitor Blood Pressure Position Semi-Fowlers Blood Pressure Location Left Arm Pulse Ox 95 95 Oxygen Delivery Method Room Air Weight Weight: 94 kg Body Mass Index (BMI) 30.6
--- NOTE | 2024-01-10 15:16 | PCM.DC ---
Discharge Instructions Diet Discharge Diet: No restrictions Activity Discharge Activity: Return to Normal Activity and May Not Drive (while taking narcotic pain medications.) Additional Activity Instructions:: ELADIO drain to bulb suction Dressing / Incision Cleanse incision/area with: Keep Dressing Clean & Dry Follow Up Care Please Follow Up With: Hood Fletcher MD When: Call [phone] for an appointment, next week to remove drains Test Results: Test results from this visit will be discussed in further detail at your follow-up appointment, if applicable. Discharge Plan Admission Primary Reason for Your Visit: Bilateral hydrocelectomy Attending Provider: Hood Fletcher Primary Care Provider: Annamaria Rollins Instructions Print Language: Portuguese Discharge Orders/Prescriptions Prescriptions: Continued nitroglycerin 0.4 mg tablet, sublingual 0.4 mg SUBLINGUAL Q5-15M PRN (Reason: chest pain ) amlodipine 5 mg tablet 5 mg PO DAILY Qty: 90 3RF atorvastatin 80 mg tablet 80 mg PO QHS Qty: 90 3RF furosemide 40 mg tablet 40 mg PO DAILY Qty: 90 3RF lisinopril 40 mg tablet 40 mg PO DAILY Qty: 90 3RF metoprolol tartrate 25 mg tablet 25 mg PO BID Qty: 180 3RF Held aspirin 81 mg tablet,delayed release (DR/EC) 81 mg PO DAILY Hold Instructions: Resume on 01/17/24. Eliquis 2.5 mg tablet 2.5 mg PO BID Qty: 180 3RF Hold Instructions: Resume on 01/17/24. Patient Comments: STOP 3 DAYS PRIOR TO OR Referrals / Follow Up: Annamaria Rollins MD [Primary Care Provider] - Disposition Disposition (needs filled in before D/C Order can be placed): Home, Self Care
--- NOTE | 2024-01-10 15:17 | PCM.OPRPT ---
Report of Operation Date of Procedure: 01/10/24 Pre-Operative Diagnosis: Large bilateral hydroceles Post-Operative Diagnosis: The same Surgery/Procedure Performed:: Right hydrocelectomy and left hydrocelectomy Description of Surgical Findings:: Patient was taken back to the operating room and a smooth induction of general anesthesia he was placed in dorsolithotomy position in supine position. The scrotum was shaved prepped and draped in usual sterile fashion I made a small incision in the midline raphae dissected down to the right large hydrocele punctured the hydrocele and drained it out and the delivered the testicle I then was able to peel off the hydrocele sac from the inside of the testicle on the right side and off the tunica vaginalis and out the testicle itself and then use electrocautery to remove the hydrocele sac I then oversewed the edges with a chromic stitch in place and hydrocele out and then removed but the testicle back in the dartos pouch and then put a drain on that side we then went to the left side opened up the hydrocele sac drained out all the fluid deliver the testicle and then peeled the hydrocele sac off the testicles were circumferentially cauterized to obtain hemostasis and then excised the hydrocele sac off the spermatic cord and the testicle the testicle was then put back into the sac on that side we oversewed the edges of the testicle with hydrocele sac was removed there was no bleeding good hemostasis and then placed a drain on that side as well I then closed the midline incision in 2 layers using chromic stitches plus and trace dressings were placed patient is anesthetic was was taken back to PACU in good condition he will hold his Eliquis and aspirin I will see him next week for removal of the drains Surgeon: Hood Fletcher Type of Anesthesia: General Drains: ELADIO drains Estimated Blood Loss (mL): 10 Admit VTE Documentation VTE Present on Admission: No VTE Mechan Device Prophylaxis: SCD's VTE Pharm Prophylaxis ordered?: No
--- NOTE | 2024-01-10 15:27 | PCM.POST.ANE ---
Anesthesia: Postop Eval I Current Vital Signs Temperature: 97.1 F Pulse Rate: 86 Blood Pressure: 155/96 Respiratory Rate: 16 Pulse Ox: 97 Oxygen Delivery Method: Room Air Assessment Airway patent: Yes Spontaneous unlabored respirations: Yes Mental status: Awake and Calm nausea: No Vomiting: No Anesthesia Complication: No Fluid Hydration Crystalloid volume administer (ml): 800 Colloids volume administered (ml): 0 Blood Product volume administered (ml): 0 Total IV fluid infused: 800 Progress Note Anesthesia document: Postop Eval 1 completed: Yes
--- NOTE | 2024-01-10 16:06 | POSTOPAN2_ITS ---
Anesthesia Postop Eval I Sum Anesthesia Postop Eval I Summary Anesthesia Postop Eval I Summary: Anesthesia Postop Eval I: Assessment Summary Airway patent Yes 01/10/24 15:29 SURGICAL ASSISTANT.SKOBY Spontaneous unlabored Yes 01/10/24 15:29 SURGICAL ASSISTANT.SKOBY respirations Mental status Awake,Calm 01/10/24 15:29 SURGICAL ASSISTANT.SKOBY nausea No 01/10/24 15:29 SURGICAL ASSISTANT.SKOBY Vomiting No 01/10/24 15:29 SURGICAL ASSISTANT.SKOBY Anesthesia Postop Eval I: Fluid Summary
--- NOTE | 2024-01-10 16:06 | PCM.POSTANE2 ---
Anesthesia Postop Eval I Sum Anesthesia Postop Eval I Summary Anesthesia Postop Eval I Summary: Anesthesia Postop Eval I: Assessment Summary Airway patent Yes 01/10/24 15:29 MARBLE INSTALLER SUPERVISOR.SKOBY Spontaneous unlabored Yes 01/10/24 15:29 MARBLE INSTALLER SUPERVISOR.TSERING respirations Mental status Awake,Calm 01/10/24 15:29 MARBLE INSTALLER SUPERVISOR.SKOBY nausea No 01/10/24 15:29 MARBLE INSTALLER SUPERVISOR.SKOBY Vomiting No 01/10/24 15:29 MARBLE INSTALLER SUPERVISOR.ALVINOBAsuncion Anesthesia Postop Eval I: Fluid Summary Crystalloid volume administer 800 01/10/24 15:29 MARBLE INSTALLER SUPERVISOR.SKOBY (ml) Colloids volume administered ( 0 01/10/24 15:29 MARBLE INSTALLER SUPERVISOR.SKOBY ml) Blood Product volume 0 01/10/24 15:29 MARBLE INSTALLER SUPERVISOR.SKOBY administered (ml) Total IV fluid infused 800 01/10/24 15:29 MARBLE INSTALLER SUPERVISOR.TSERING Anesthesia Postop Eval I: Summary Notes Anesthesia Complication No 01/10/24 15:29 MARBLE INSTALLER SUPERVISOR.TSERING Anesthesia Complication Comment: Post-operative progress note Anesthesia: Postop Eval II Evaluation Mental status: Awake and Calm Pain Level: 0 nausea: No Vomiting: No Complications Anesthesia Complication: No
--- NOTE | 2024-01-10 16:58 | POSTOPAN2_ITS ---
Anesthesia Postop Eval I Sum Anesthesia Postop Eval I Summary Anesthesia Postop Eval I Summary: Anesthesia Postop Eval I: Assessment Summary Airway patent Yes 01/10/24 15:29 CLAIM REVIEW MEDICAL DIRECTORREYNOLD Spontaneous unlabored Yes 01/10/24 15:29 CLAIM REVIEW MEDICAL DIRECTORREYNOLD respirations Mental status Awake,Calm 01/10/24 16:07 nausea No 01/10/24 16:07 Vomiting No 01/10/24 16:07 Anesthesia Postop Eval I: Fluid Summary Crystalloid volume administer 800 01/10/24 15:29 CLAIM REVIEW MEDICAL DIRECTOR.ALVINOBY (ml) Colloids volume administered ( 0 01/10/24 15:29 CLAIM REVIEW MEDICAL DIRECTOR.SHRUTIY ml) Blood Product volume 0 01/10/24 15:29 CLAIM REVIEW MEDICAL DIRECTOR.ALVINOBY administered (ml) Total IV fluid infused 800 01/10/24 15:29 CLAIM REVIEW MEDICAL DIRECTORREYNOLD Anesthesia Postop Eval I: Summary Notes Anesthesia Complication No 01/10/24 16:07 Anesthesia Complication Comment: Post-operative progress note Anesthesia: Postop Eval II Evaluation Mental status: Awake and Calm Pain Level: 0 nausea: No Vomiting: No Progress Note Post-operative progress note: Postop eval at 1652 Complications Anesthesia Complication: No
--- NOTE | 2024-01-10 16:58 | PCM.POSTANE2 ---
Anesthesia Postop Eval I Sum Anesthesia Postop Eval I Summary Anesthesia Postop Eval I Summary: Anesthesia Postop Eval I: Assessment Summary Airway patent Yes 01/10/24 15:29 CLINICAL INFORMATICS PHYSICIANREYNOLD Spontaneous unlabored Yes 01/10/24 15:29 CLINICAL INFORMATICS PHYSICIANREYNOLD respirations Mental status Awake,Calm 01/10/24 16:07 nausea No 01/10/24 16:07 Vomiting No 01/10/24 16:07 Anesthesia Postop Eval I: Fluid Summary Crystalloid volume administer 800 01/10/24 15:29 CLINICAL INFORMATICS PHYSICIAN.ALVINOBY (ml) Colloids volume administered ( 0 01/10/24 15:29 CLINICAL INFORMATICS PHYSICIAN.SHRUTIY ml) Blood Product volume 0 01/10/24 15:29 CLINICAL INFORMATICS PHYSICIAN.ALVINOBY administered (ml) Total IV fluid infused 800 01/10/24 15:29 CLINICAL INFORMATICS PHYSICIANREYNOLD Anesthesia Postop Eval I: Summary Notes Anesthesia Complication No 01/10/24 16:07 Anesthesia Complication Comment: Post-operative progress note Anesthesia: Postop Eval II Evaluation Mental status: Awake and Calm Pain Level: 0 nausea: No Vomiting: No Progress Note Post-operative progress note: Postop eval at 1652 Complications Anesthesia Complication: No
--- NOTE | 2024-01-11 | HYD_PTH ---
PATIENT: TIM DAWSON Jr. LOC: [facility] [place] U#:[id number] AGE/SX: 83/M ROOM: RE01/10/[address]: Dr. Hood Fletcher MD : [id number] BED: DIS: 01/10/2024 SPEC #: [id number] RECD: 01/11/24 10:02 STATUS: MISTY WHITNEY #: [id number] VEENA: 01/11/24 00:[address]: Hood Fletcher DEPT: SURGICAL PATHOLOGY RECD BY: Anca Thomas ENTERED: 01/11/24 13:22 SP TYPE: HYDROCELE OTHR DR: Annamaria Rollins MD Tissues: HYDROCELE Procedures: Surgery Specimen Level II HEADER OPERATION: Hydrocelectomy PRE-OP DIAGNOSIS: Bilateral hydrocele TISSUE SUBMITTED: Bilateral hydroceles MICROSCOPIC DIAGNOSIS Bilateral hydroceles, hydrocelectomy: Consistent with hydrocele sacs with mild fibrosis and minimal chronic inflammation. AM/mr 01/12/2024 MICROSCOPIC DESCRIPTION Slides are reviewed. GROSS DESCRIPTION Received in fixative is one container labeled with the patient's name and designated Bilateral hydrocele. The specimen consists of two pieces of berger soft tissue measuring 7.5 x 2.0 x 1.5cm and 11.0 x 5.0 x 1.0cm. No mass lesion is identified. Farmworker Fruit section for cassette 1 -2- one piece, 3 -4- second piece. / 01/11/2024 TC:5 CPT:06999
== END 2024-01-10 18:12 | disposition home or self-care (01) ==
LOC: SDC 11:41 → AC 11:43
PROVIDERS: PCP Family Medicine; Referring Provider Urology; Visit Provider Urology
PROC: (CPT 55040; principal; 2024-01-10 13:35)
DX: N43.3 Hydrocele, unspecified (principal); I48.11 Longstanding persistent atrial fibrillation; N40.1 Benign prostatic hyperplasia with lower urinary tract symptoms; R35.0 Frequency of micturition; R35.1 Nocturia; I25.10 Atherosclerotic heart disease of native coronary artery without angina pectoris; I10 Essential (primary) hypertension; E78.00 Pure hypercholesterolemia, unspecified; Z79.02 Long term (current) use of antithrombotics/antiplatelets; Z79.82 Long term (current) use of aspirin; Z79.899 Other long term (current) drug therapy; Z86.73 Personal history of transient ischemic attack (TIA), and cerebral infarction without residual deficits; Z95.1 Presence of aortocoronary bypass graft
CPT/HCPCS: 55040; 55500; 88302; J7120; J2405

== ENCOUNTER → 2024-12-17 | Outpatient (CLI) | payer MEDICARE, SELFPAY ==
[2024-12-17 10:58] LABS: Absolute Lymphocyte Count 1.06 X10^3/uL (0.83-4.51); Basophil# 0.03 X10^3/uL; Basophil% 0.6 % (0-1); Eosinophil# 0.15 X10^3/uL; Eosinophils% 3.1 % (0-5); Hematocrit 43.1 % (40-54); Hemoglobin 14.2 g/dL (13.0-16.5); Lymphocyte # 1.06 X10^3/ul (0.83-4.51); Lymphocyte % 22.1 % (19-41); Mean Corp Hgb Conc 32.9 g/dL (32-36); Mean Corpuscular Hgb 30.2 pg (27.0-32.0); Mean Corpuscular Volume 91.7 fL (80-94); Mean Platelet Vol. 10.8 fl (6.2-12.0); Monocyte# 0.52 X10^3/uL; Monocyte% 10.8 % (0-10); NRBC Flagged by Analyzer 0 % (0-5); Neutrophil # 3.03 X10^3/uL (2.7-7.7); Neutrophil % 63.2 % (47-70); Platelet Count 162 K/mm3 (150-450); RBC Distribution Width CV 13.6 % (11.6-14.6); RBC Distribution Width SD 45.6 fl (35.1-43.9); White Blood Count 4.8 K/mm3 (4.4-11.0)
[2024-12-17 14:55] LABS: ALB/GLOB Ratio 1.5 RATIO (0.9-2.4); AST(SGOT) 31 U/L (<=37); Alanine Aminotransfer ALT/SGPT 23 U/L (<=46); Albumin, Serum 4.3 g/dL (3.4-4.8); Alkaline Phosphatase 96 U/L (40-129); Anion Gap 10 (5-15); BUN 20 mg/dL (4-19); BUN/Creat Ratio 19.2 RATIO (10-20); Calcium,Total 9.4 mg/dL (7.6-11.0); Carbon Dioxide 27.6 mmol/L (21.0-32.0); Chloride 103 mmol/L (98-108); Cholesterol 138 mg/dL (<=200); Creatinine, Serum 1.04 mg/dL (0.70-1.20); EST Glomerular Filtration Rate 70 (>60); Globulin 2.9 g/dL (2.2-4.2); Glucose 87 mg/dL (70-99); High Density Lipoprotein 62 mg/dL; Low Density Lipoprotein Calc. 58 mg/dL; Potassium 3.9 mmol/L (3.3-5.1); Protein, Total 7.2 g/dL (5.9-8.4); Sodium Level 141 mmol/L (133-145); Total Bilirubin 1.33 mg/dL (0.00-1.30); Triglycerides 91 mg/dL; Very Low Density Lipoprotein 18 mg/dL (5-40); cholesterol:hdl ratio screen 2.23
== END | disposition home or self-care (01) ==
LOC: LAB 10:01
PROVIDERS: PCP Family Medicine; Referring Provider Nurse Practitioner Gerontology; Visit Provider Nurse Practitioner Gerontology
DX: E78.5 Hyperlipidemia, unspecified (principal); I48.11 Longstanding persistent atrial fibrillation; Z79.899 Other long term (current) drug therapy
CPT/HCPCS: 36415; 80053; 80061; 85025